=== PATIENT | female | born 1995 | race Caucasian/White ===

== ENCOUNTER 2016-10-05 18:30 | Emergency (ER) | payer MEDICAID, OTHER ==
--- NOTE | 2016-10-05 20:41 | ED ---
Skin Complaint - HPI Summary HPI Summary: 20 female presents with complaints of facial swelling and pain that began Saturday of this week, 10/02/16. Patient states she was seen at a walk in clinic who gave her clindamycin and diagnosed her with a cellulitis. This has not helped. Patient states she thought the pain began from a pimple that turned into increased swelling and pain. The pain and swelling has begun to worsen, even with taking the clindamycin, and spreading to her left cheek and under her chin. Denies fever/chills, any other pain, nausea, vomiting. Has been taking Advil without any relief. Patient denies discharge, recent trauma or injury. No PMHx. No new soaps, lotions, makeup or facewash. Denies difficulty breathing and swallowing. Is able to open her mouth however causes her pain in her chin due to the swelling and tenderness. Denies history MRSA. Denies open wounds or illnesses that she has been around. - History of Current Complaint Chief Complaint: EDGeneral Time Seen by Provider: 10/05/16 20:25 Stated Complaint: DX CELLULITIS/WORSENING SYMPTOMS Hx Obtained From: Patient Hx Last Menstrual Period: early Jun Onset/Duration: Started Days Ago - ~5, Atraumatic Skin Exposure Onset/Duration: Days Ago Timing: Constant Onset Severity: Moderate Current Severity: Severe Pain Intensity: 10 Pain Scale Used: 0-10 Numeric Skin Location: Face - chin Character: Swelling, Redness, Raised, Painful Aggravating Symptom(s): Touch Alleviating Symptom(s): Nothing, Treatment [employer]: - clindamycin x 4 days, has not helped Associated Signs & Symptoms: Negative Related History: Other: - pimple? - Allergy/Home Medications Allergies/Adverse Reactions: Allergies Allergy/AdvReac Type Severity Reaction Status Date / Time Amoxicillin Allergy Severe Hives Verified 10/05/16 22:41 Cyclobenzaprine Allergy Hives Verified 10/05/16 22:41 [From Flexeril] Morphine Allergy Rash Verified 10/05/16 22:41 Penicillins Allergy Hives Verified 10/05/16 22:41 PMH/Surg Hx/FS Hx/Imm Hx Endocrine/Hematology History: Denies: Hx Diabetes, Hx Thyroid Disease Cardiovascular History: Denies: Hx Hypertension Respiratory History: Reports: Hx Asthma Denies: Hx Chronic Obstructive Pulmonary Disease (COPD) GI History: Denies: Hx Ulcer - Surgical History Surgery Procedure, Year, and Place: appe - Immunization History Immunizations Up to Date: Yes Infectious Disease History: No Infectious Disease History: Denies: Hx Clostridium Difficile, Hx Hepatitis, Hx Human Immunodeficiency Virus (HIV), Hx of Known/Suspected MRSA, Hx Shingles, Hx Tuberculosis, History Other Infectious Disease, Traveled Outside the [place] in Last 30 Days - Family History Known Family History: Positive: None - Social History Alcohol Use: None Substance Use Type: Reports: None Smoking Status (MU): Never Smoked Tobacco Review of Systems Constitutional: Negative ENT: Negative Cardiovascular: Negative Respiratory: Negative Gastrointestinal: Negative Positive: Other - pain, redness and swelling of chin Neurological: Negative All Other Systems Reviewed And Are Negative: Yes Physical Exam Triage Information Reviewed: Yes Vital Signs On Initial Exam: Initial Vitals Temp Pulse Resp BP Pulse Ox 98.0 F 70 16 106/63 99 10/05/16 18:34 10/05/16 18:34 10/05/16 18:34 10/05/16 18:34 10/05/16 18:34 afebrile Vital Signs Reviewed: Yes Appearance: Positive: Well-Appearing, No Pain Distress, Well-Nourished Skin: Positive: Warm, Skin Color Reflects Adequate Perfusion, Dry, Erythema @ - chin and left jawline, tender to palpation, warm to touch, firm indurated area at anterior chin, non-fluctuant. mary size abscess palapted, very tender. no discharge, healing pimple/wound superficially noted. Head/Face: Positive: Normal Head/Face Inspection - besides edema and erythema as noted above Eyes: Positive: Normal, EOMI, TARA, Conjunctiva Clear ENT: Positive: Normal ENT inspection, Hearing grossly normal, Pharynx normal. Negative: Tonsillar swelling, Tonsillar exudate, Trismus - hurts to open mout due to chin pain/swelling Dental: Positive: Cellulitis @ - chin and right jaw line, Cervical Lymphadenopathy, Other - no chace's angina. Negative: Dental Fracture @ Neck: Positive: Supple, Nontender. Negative: Tenderness @, Enlarged Nodes @ Respiratory/Lung Sounds: Positive: Clear to Auscultation, Breath Sounds Present. Negative: Rales, Rhonchi, Wheezes Cardiovascular: Positive: Normal, RRR, Pulses are Symmetrical in both Upper and Lower Extremities Abdomen Description: Positive: Nontender Bowel Sounds: Positive: Present Musculoskeletal: Positive: Normal, Strength/ROM Intact Neurological: Positive: Normal, Sensory/Motor Intact, Alert, Oriented to Person Place, Time Diagnostics - Vital Signs Vital Signs Temp Pulse Resp BP Pulse Ox 10/05/16 20:23 59 98 10/05/16 20:22 110/74 10/05/16 18:38 98.2 F 70 16 106/63 99 10/05/16 18:34 98.0 F 70 16 106/63 99 - Laboratory Lab Statement: Any lab studies that have been ordered have been reviewed, and results considered in the medical decision making process. Course/Dx - Course Course Of Treatment: given toradol for pain and inflammation. given first dose of rocephin IM and bactrim orally. will continue bactrim at home along with ibuprofen. warm compresses. not ready to be i&d. Dr Cazares also evaluated patient, agrees with plan. Discontinue clindamycin. Return Saturday for re-check to ensure improvement of symptoms. Afebrile and normal vital signs no concern for sepsis, no further lab work or imaging ordered at this time. Patient is aware of worsening signs and symptoms to return for. - Differential Diagnoses - Skin Complaint Differential Diagnoses: Abscess, Cellulitis, Contact Dermatitis, MRSA, Viral Exanthem, Other - Diagnoses Provider Diagnoses: Abscess or cellulitis of chin Discharge - Discharge Plan Condition: Stable Disposition: HOME Prescriptions: Sulfamethox/Trimethoprim DS* [Bactrim DS 800/160 TAB*] 1 tab PO BID #20 tab Patient Education Materials: Cellulitis (ED), Abscess (ED) Referrals: No Primary Care Phys,NOPCP [Primary Care Provider] - [facility] – [place] PHYSICIAN REFERRAL [Outside] Additional Instructions: Take medication as prescribed. Discontinue use of Clindamycin. If you develop worsening symptoms such as fever/chills, difficulty swallowing or breathing, or generalized feeling of illness please return to ED promptly. Follow up in ED for re-check on Saturday10/07/16 to ensure improvement of symptoms. Give medication 2-3 days to show signs of improvement rather than worsening. Apply warm compresses to the area multiple times daily. Ibuprofen for pain and inflammation, as needed.
[2016-10-05] MEDS ORDERED: cefTRIAXone VIAL(*) 1,000 MG in NS 0.9% 50 ML* 50 ML IVPB ONE (21:58)
[2016-10-05] MEDS ORDERED: Sulfamethox/Trimethoprim DS 800/160* TAB PO ONE (21:59)
[2016-10-05] MEDS ORDERED: cefTRIAXone VIAL(*) 1,000 MG VIAL IM ONE (22:24)
[2016-10-05] MEDS: Ketorolac INJ* 60 MG/2 ML VIAL IM ONE ×2 (22:41→22:51)
[2016-10-05 23:17] VITALS: BP 92/64
== END 2016-10-05 23:10 | disposition home or self-care (01) ==
LOC: ED 18:30
DX: L02.01 Cutaneous abscess of face (principal)
CPT/HCPCS: 96374; 99283; A9270-GY; J0696; J1885

== ENCOUNTER 2016-10-26 15:29 | Emergency (ER) | payer MEDICAID ==
[2016-10-26 15:34] VITALS: BP 114/75
--- NOTE | 2016-10-26 16:22 | UC ---
Abdominal Pain Female HPI - HPI Summary HPI Summary: Full, pressure, pain in upper abdomen below ribs that is worse with deep breaths since this morning. Denies wheezing, SOB, or hx of respiratory problems. No n/v/d this week, no fever or shaking chills. Had facial cellulitis in late September and was exposed to 3 kinds of abx in her treatment. After that was done she had a week of having diarrhea "all day long." Now bowel is back to normal, BMs every 2-3 days. - History of Current Complaint Chief Complaint: UCGeneralIllness Stated Complaint: DIFFICULTY BREATHING Time Seen by Provider: 10/26/16 15:47 Hx Obtained From: Patient Hx Last Menstrual Period: 10/13/16 ?: No Onset/Duration: Gradual Onset, Lasting Hours Timing: Constant Severity Initially: Mild Severity Currently: Mild Location: Epigastric Radiates: Yes Radiates to: Chest - bilat ribs Character: Aching, Dull Aggravating Factor(s): Nothing Alleviating Factor(s): Nothing Associated Signs and Symptoms: Negative: Fever, Back Pain, Constipation, Blood in Stool, Urinary Symptoms, Nausea, Vomiting Allergies/Adverse Reactions: Allergies Allergy/AdvReac Type Severity Reaction Status Date / Time Amoxicillin Allergy Severe Hives Verified 10/26/16 15:34 Cyclobenzaprine Allergy Hives Verified 10/26/16 15:34 [From Flexeril] Morphine Allergy Rash Verified 10/26/16 15:34 Penicillins Allergy Hives Verified 10/26/16 15:34 Home Medications: Home Medications Depression Medication 10/26/16 [History] PMH/Surg Hx/FS Hx/Imm Hx Previously Healthy: Yes - Surgical History Surgical History: Yes Surgery Procedure, Year, and Place: appe - Family History Known Family History: Positive: Hypertension - Social History Lives: With Family Alcohol Use: None Substance Use Type: None Smoking Status (MU): Never Smoked Tobacco - Immunization History Most Recent Influenza Vaccination: fall 2012 Vaccination Up to Date: Yes Review of Systems Constitutional: Negative Skin: Negative Eyes: Negative ENT: Negative Respiratory: Negative Cardiovascular: Negative Gastrointestinal: Abdominal Pain Genitourinary: Negative Motor: Negative Neurovascular: Negative Musculoskeletal: Negative Neurological: Negative Psychological: Negative All Other Systems Reviewed And Are Negative: Yes Physical Exam Triage Information Reviewed: Yes Appearance: Well-Appearing, No Pain Distress, Well-Nourished Vital Signs: Initial Vital Signs Temp 98.8 F 10/26/16 15:30 Pulse 69 10/26/16 15:30 Resp 18 10/26/16 15:30 BP 114/75 10/26/16 15:30 Pulse Ox 99 10/26/16 15:30 Vital Signs Reviewed: Yes Eye Exam: Normal Eyes: Positive: Conjunctiva Clear ENT Exam: Normal ENT: Positive: Normal ENT inspection, Hearing grossly normal, Pharynx normal, TMs normal Dental Exam: Normal Neck exam: Normal Neck: Positive: Supple, Nontender, No Lymphadenopathy Respiratory: Positive: Chest non-tender, Lungs clear, Normal breath sounds, No respiratory distress, No accessory muscle use Cardiovascular Exam: Normal Cardiovascular: Positive: RRR, No Murmur Abdomen Description: Positive: Nontender - diffuse mild tenderness, Soft. Negative: CVA Tenderness (R), CVA Tenderness (L), Distended, McBurney's Point Tenderness, Peritoneal Signs Bowel Sounds: Positive: Hypoactive Musculoskeletal Exam: Normal Neurological Exam: Normal Neurological: Positive: Alert Psychological Exam: Normal Skin Exam: Normal Abd Pain Female Course/Dx - Differential Dx/Diagnosis Provider Diagnoses: dyspepsia Discharge - Discharge Plan Condition: Stable Disposition: HOME Prescriptions: Omeprazole CAP* [Prilosec CAP* 20 MG] 20 mg PO DAILY #30 cap. Patient Education Materials: Indigestion (ED) Referrals: No Primary Care Phys,NOPCP [Primary Care Provider] - [facility] [place] [facility]IAN REFERRAL [Outside] Additional Instructions: As we discussed, I think some of your discomfort may be related to the rounds of antibiotics you took in the last couple weeks. I recommend you take probiotics to help repopulate your intestinal bacteria. You can take pills ( such as lactobacillus), or you can eat cultured food with live cultures. Yogurt , kimchi, sauerkraut, and kombucha are all good sources of such bacteria. If you have prolonged symptoms, please contact a primary care provider for a follow-up visit.
== END 2016-10-26 16:29 | disposition home or self-care (01) ==
LOC: UCEAST 15:29
DX: R10.13 Epigastric pain (principal); Z79.2 Long term (current) use of antibiotics; Z79.899 Other long term (current) drug therapy
CPT/HCPCS: 99212; G0463

== ENCOUNTER 2017-03-03 20:30 | Emergency (ER) | payer MEDICAID ==
[2017-03-03] MEDS ORDERED: Ondansetron INJ* 2 MG/ML VIAL IV ONE (21:35)
[2017-03-03] MEDS ORDERED: NS 0.9% 1000 ML* 1,000 ML IV ONE (21:35)
[2017-03-03] MEDS ORDERED: Morphine INJ* 2 MG/ML 1 ML CARPUJECT IV ONE (21:35)
--- NOTE | 2017-03-03 21:59 | RAD ---
Indication: RIGHT upper quadrant pain. Comparison: July 07, 2013 Technique: RIGHT upper quadrant ultrasound. Report: Appropriate direction flow documented in the portal and hepatic veins. 16.6 cm liver is normal in echogenicity. Negative for focal hepatic lesions. Negative for intrahepatic biliary dilatation. 2.6 mm common bile duct. Contracted gallbladder limiting assessment. Nonetheless the gallbladder wall measures only 2.8 mm within normal limits. No visualized gallstones, biliary sludge, or pericholecystic fluid. Negative for sonographic Mullins's sign. The pancreatic tail is partially obscured due to bowel gas with the visualized pancreas unremarkable. Negative for ascites. 12.2 cm RIGHT kidney is unremarkable. IMPRESSION: Contracted gallbladder limiting assessment without visualized gross abnormality of the gallbladder. If clinically indicated consider nonemergent reassessment with ultrasound after further fasting.
[2017-03-03 22:15] LABS: Hematocrit 41 % (35-47); Hemoglobin 13.7 g/dl (12.0-16.0); Mean Corpuscular HGB Conc 34 g/dl (31-36); Mean Corpuscular Hemoglobin 28 pg (27-31); Mean Corpuscular Volume 84 fL (80-97); Mean Platelet Volume 8 um3 (7.4-10.4); Red Blood Count 4.81 10^6/ul (4.0-5.4); Red Cell Distribution Width 14 % (10.5-15); White Blood Count 9.1 10^3/ul (3.5-10.8)
[2017-03-03] MEDS ORDERED: Morphine INJ* 4 MG/ML 1 ML CARPUJECT ONE (22:20)
[2017-03-03] MEDS ORDERED: Ketorolac INJ* 30 MG/ML 1 ML VIAL IV PUSH ONE (22:27)
[2017-03-03 22:30] LABS: Albumin 4.6 g/dL (3.2-5.2); Calcium 9.7 mg/dL (8.6-10.3); EGFR African American 134.6 (>60); EGFR Non-African American 104.6 (>60); Globulin 3.2 g/dL (2-4); Potassium 3.7 mmol/L (3.5-5.0); Total Bilirubin 0.4 mg/dL (0.2-1.0); Total Protein 7.8 g/dL (6.4-8.9)
[2017-03-03 23:11] LABS: Urine Bacteria Absent (Absent); Urine Bilirubin Negative (Negative); Urine Glucose Negative (Negative); Urine Nitrite Negative (Negative)
[2017-03-04 02:46] VITALS: BP 105/60
--- NOTE | 2017-03-04 03:17 | ED ---
Carolyn Peterson Rebecca, scribed for Mary Grace Dasuel on 03/03/17 at 2125 . Back Pain - HPI Summary HPI Summary: Pt is a 21 y/o F who presents to ED c/o R flank pain. Pain began approximately 1 week ago and is currently severe, ranked 8/10. Pain does not radiate anywhere. Sx aggravated and alleviated by nothing. Additionally c/o L-sided abdominal pain which she believes is secondary to a left ovarian cyst, diagnosed last week. Denies fever, N/V, blood in stool and hematuria. - History of Current Complaint Chief Complaint: EDFlankPain Stated Complaint: FLANK PAIN/WBC IN URINE Time Seen by Provider: 03/03/17 21:13 Hx Obtained From: Patient Hx Last Menstrual Period: 10/13/16 Onset/Duration: Lasting Weeks - 1 week, Still Present Back Pain Location: Is Discrete @ - R flank Severity Currently: Severe Pain Intensity: 8 Pain Scale Used: 0-10 Numeric Aggravating Symptom(s): Nothing Alleviating Symptom(s): Nothing Associated Signs And Symptoms: Positive: Abdominal Pain - L-sided. Negative: Fever - Allergies/Home Medications Allergies/Adverse Reactions: Allergies Allergy/AdvReac Type Severity Reaction Status Date / Time Amoxicillin Allergy Severe Hives Verified 03/03/17 20:39 Cyclobenzaprine Allergy Hives Verified 03/03/17 20:39 [From Flexeril] Morphine Allergy Rash Verified 03/03/17 20:39 Penicillins Allergy Hives Verified 03/03/17 20:39 PMH/Surg Hx/FS Hx/Imm Hx Endocrine/Hematology History: Denies: Hx Diabetes, Hx Thyroid Disease Cardiovascular History: Denies: Hx Hypertension Respiratory History: Reports: Hx Asthma Denies: Hx Chronic Obstructive Pulmonary Disease (COPD) GI History: Denies: Hx Ulcer - Surgical History Surgery Procedure, Year, and Place: appe Infectious Disease History: No Infectious Disease History: Denies: Hx Clostridium Difficile, Hx Hepatitis, Hx Human Immunodeficiency Virus (HIV), Hx of Known/Suspected MRSA, Hx Shingles, Hx Tuberculosis, History Other Infectious Disease, Traveled Outside the [place] in Last 30 Days - Family History Known Family History: Positive: Hypertension - Social History Alcohol Use: None Substance Use Type: Reports: None Smoking Status (MU): Never Smoked Tobacco Review of Systems Negative: Fever Positive: Abdominal Pain - L-sided. Negative: Vomiting, Nausea Positive: flank pain - Right, other - NEGATIVE: Blood in stool. Negative: hematuria All Other Systems Reviewed And Are Negative: Yes Physical Exam - Summary Physical Exam Summary: Appearance: Well appearing, no pain distress Skin: warm, dry, reflects adequate perfusion Head/face: normal Eyes: EOMI, TARA ENT: normal Neck: supple, nontender Respiratory: CTA, breath sounds present Cardiovascular: RRR, pulses symmetrical Abdomen: tenderness in the RUQ and LLQ, soft Bowel: present Musculoskeletal: normal, strength/ROM intact Neuro: normal, sensory motor intact, A&Ox3 Triage Information Reviewed: Yes Vital Signs On Initial Exam: Initial Vitals Temp Pulse Resp BP Pulse Ox 98.7 F 76 18 126/83 98 03/03/17 20:35 03/03/17 20:35 03/03/17 20:35 03/03/17 20:35 03/03/17 20:35 Vital Signs Reviewed: Yes Diagnostics - Vital Signs Vital Signs Temp Pulse Resp BP Pulse Ox 03/03/17 20:35 98.7 F 76 18 126/83 98 - Laboratory Lab Results: Lab Results 03/03/17 03/03/17 03/03/17 Range/Units 22:05 22:05 22:05 WBC 9.1 (3.5-10.8) 10^3/ul RBC 4.81 (4.0-5.4) 10^6/ul Hgb 13.7 (12.0-16.0) g/dl Hct 41 (35-47) % MCV 84 (80-97) fL MCH 28 (27-31) pg MCHC 34 (31-36) g/dl RDW 14 (10.5-15) % Plt Count 287 (150-450) 10^3/ul MPV 8 (7.4-10.4) um3 Neut % (Auto) 52.7 (38-83) % Lymph % (Auto) 35.7 (25-47) % Gaines % (Auto) 8.9 (1-9) % Eos % (Auto) 2.0 (0-6) % Baso % (Auto) 0.7 (0-2) % Absolute Neuts (auto) 4.8 (1.5-7.7) 10^3/ul Absolute Lymphs (auto) 3.3 (1.0-4.8) 10^3/ul Absolute Monos (auto) 0.8 (0-0.8) 10^3/ul Absolute Eos (auto) 0.2 (0-0.6) 10^3/ul Absolute Basos (auto) 0.1 (0-0.2) 10^3/ul Absolute Nucleated RBC 0.01 10^3/ul Nucleated RBC % 0.1 INR (Anticoag Therapy) 1.11 (0.89-1.11) APTT 36.7 H (26.0-36.3) seconds Sodium 134 (133-145) mmol/L Potassium 3.7 (3.5-5.0) mmol/L Chloride 101 (101-111) mmol/L Carbon Dioxide 28 (22-32) mmol/L Anion Gap 5 (2-11) mmol/L BUN 14 (6-24) mg/dL Creatinine 0.70 (0.51-0.95) mg/dL Est GFR ( Amer) 134.6 (>60) Est GFR (Non-Af Amer) 104.6 (>60) BUN/Creatinine Ratio 20.0 (8-20) Glucose 85 (70-100) mg/dL Calcium 9.7 (8.6-10.3) mg/dL Total Bilirubin 0.40 (0.2-1.0) mg/dL AST 14 (13-39) U/L ALT 11 (7-52) U/L Alkaline Phosphatase 42 (34-104) U/L Total Protein 7.8 (6.4-8.9) g/dL Albumin 4.6 (3.2-5.2) g/dL Globulin 3.2 (2-4) g/dL Albumin/Globulin Ratio 1.4 (1-3) Lipase 28 (11.0-82.0) U/L Beta HCG, Quant 10.98 mIU/mL Urine Color Urine Appearance Urine pH (5-9) Ur Specific [place] (1.010-1.030) Urine Protein (Negative) Urine Ketones (Negative) Urine Blood (Negative) Urine Nitrate (Negative) Urine Bilirubin (Negative) Urine Urobilinogen (Negative) Ur Leukocyte Esterase (Negative) Urine WBC (Auto) (Absent) Urine RBC (Auto) (Absent) Ur Squamous Epith Cells (Absent) Urine Bacteria (Absent) Urine Glucose (Negative) 10/22/17 Range/Units 22:52 WBC (3.5-10.8) 10^3/ul RBC (4.0-5.4) 10^6/ul Hgb (12.0-16.0) g/dl Hct (35-47) % MCV (80-97) fL MCH (27-31) pg MCHC (31-36) g/dl RDW (10.5-15) % Plt Count (150-450) 10^3/ul MPV (7.4-10.4) um3 Neut % (Auto) (38-83) % Lymph % (Auto) (25-47) % Gaines % (Auto) (1-9) % Eos % (Auto) (0-6) % Baso % (Auto) (0-2) % Absolute Neuts (auto) (1.5-7.7) 10^3/ul Absolute Lymphs (auto) (1.0-4.8) 10^3/ul Absolute Monos (auto) (0-0.8) 10^3/ul Absolute Eos (auto) (0-0.6) 10^3/ul Absolute Basos (auto) (0-0.2) 10^3/ul Absolute Nucleated RBC 10^3/ul Nucleated RBC % INR (Anticoag Therapy) (0.89-1.11) APTT (26.0-36.3) seconds Sodium (133-145) mmol/L Potassium (3.5-5.0) mmol/L Chloride (101-111) mmol/L Carbon Dioxide (22-32) mmol/L Anion Gap (2-11) mmol/L BUN (6-24) mg/dL Creatinine (0.51-0.95) mg/dL Est GFR ( Amer) (>60) Est GFR (Non-Af Amer) (>60) BUN/Creatinine Ratio (8-20) Glucose (70-100) mg/dL Calcium (8.6-10.3) mg/dL Total Bilirubin (0.2-1.0) mg/dL AST (13-39) U/L ALT (7-52) U/L Alkaline Phosphatase (34-104) U/L Total Protein (6.4-8.9) g/dL Albumin (3.2-5.2) g/dL Globulin (2-4) g/dL Albumin/Globulin Ratio (1-3) Lipase (11.0-82.0) U/L Beta HCG, Quant mIU/mL Urine Color Straw Urine Appearance Clear Urine pH 5.0 (5-9) Ur Specific [place] 1.010 (1.010-1.030) Urine Protein Negative (Negative) Urine Ketones Negative (Negative) Urine Blood 1+ H (Negative) Urine Nitrate Negative (Negative) Urine Bilirubin Negative (Negative) Urine Urobilinogen Negative (Negative) Ur Leukocyte Esterase Trace H (Negative) Urine WBC (Auto) Trace(0-5/hpf) (Absent) Urine RBC (Auto) Absent (Absent) Ur Squamous Epith Cells Present H (Absent) Urine Bacteria Absent (Absent) Urine Glucose Negative (Negative) Result Diagrams: 03/03/17 22:05 03/03/17 22:05 Lab Statement: Any lab studies that have been ordered have been reviewed, and results considered in the medical decision making process. - Ultrasound No standard instances Ultrasound Interpretation Completed By: Radiologist - Gallbladder US: Contracted gallbladder limiting assessment without visualized gross abnormality of the gallbladder. If clinically indicated consider nonemergent reassessment with ultrasound after further fasting. ED physician reviewed radiology report and agrees. Obstetric US: Borderline thickened endometrium without IUP could indicate early normal , miscarriage or ectopic . Recommend followup sonography and correlation with hCG levels. 2.8 cm complex left ovarian cyst with small amount of free fluid but no torsion. ED physician reivewed raidology report and agrees. Back Pain Course/Dx - Course Assessment/Plan: Pt is a 21 y/o F who presents to ED c/o R flank pain without radiation. Pain began approximately 1 week ago and is currently severe, ranked 8 /10. Additionally c/o L-sided abdominal pain which she believes is secondary to a left ovarian cyst, diagnosed last week. Denies fever, N/V, blood in stool and hematuria. Gallbladder US: Contracted gallbladder limiting assessment without visualized gross abnormality of the gallbladder. If clinically indicated consider nonemergent reassessment with ultrasound after further fasting. Obstetric US: Borderline thickened endometrium without IUP could indicate early normal , miscarriage or ectopic . Recommend followup sonography and correlation with hCG levels. 2.8 cm complex left ovarian cyst with small amount of free fluid but no torsion. In the ED course, pt received Toradol, fluids, Morphine and Zofran. Pt will be D/C to home with Dx of abdominal pain and ovarian cyst with a follow up with OB and Rx for Naproxen. She understands and agrees. Allergies noted. - Diagnoses Differential Diagnosis/HQI/PQRI: Positive: Renal Colic, Other - torsion ovary/ ectopic /renal colic/diverticulitis Provider Diagnoses: Abdominal pain, Ovarian cyst Discharge - Discharge Plan Condition: Stable Disposition: HOME Prescriptions: Naproxen [Naproxen 500 mg] 500 mg PO Q8H PRN #20 tab MDD 3 PRN Reason: Pain Patient Education Materials: Ovarian Cyst (ED), Acute Abdominal Pain (ED) Forms: *Work Release Referrals: Phong Shrestha MD [Medical Doctor] - 2 Days The documentation as recorded by the Carolyn eugene Rebecca accurately reflects the service I personally performed and the decisions made by Pippa mendoza Emmanuel.
--- NOTE | 2017-03-04 07:59 | RAD ---
HISTORY: Left lower quadrant pain, torsion, ectopic . Beta hCG of 10.0 COMPARISONS: None TECHNIQUE: Multiple transverse and longitudinal ultrasound images were obtained of the pelvis using grayscale, color Doppler, and spectral Doppler imaging using the endovaginal transducer. FINDINGS: UTERUS: The uterus measures 10 x 6.1 x 4.7 cm. The uterus is normal in shape, size, contour, and echotexture. ENDOMETRIUM: The endometrial stripe is smooth. The endometrium measures 1.4 cm in thickness. No intrauterine gestation is identified. CUL-DE-SAC: There is a small amount of simple fluid within the cul-de-sac. This may be physiologic in a reproductive age female. RIGHT OVARY: The right ovary measures 3.5 x 3.8 x 1.9 cm. Normal arterial and venous waveforms are identifiable within the ovary on spectral Doppler imaging. LEFT OVARY: The left ovary measures 5.3 x 2.8 x 1.6 cm. Normal arterial and venous waveforms are identifiable within the ovary on spectral Doppler imaging. Involuting cyst is noted. BLADDER: The bladder is not well visualized. OTHER: None IMPRESSION: 1. NO INTRAUTERINE GESTATION IS IDENTIFIED. THE DIFFERENTIAL INCLUDES EARLY INTRAUTERINE GESTATION, MISSED , OR ECTOPIC . RECOMMEND CORRELATION WITH SERIAL BETA-HCG LEVELS AND FOLLOW-UP IMAGING. 2. NO SONOGRAPHIC FEATURES OF TORSION. PLEASE NOTE THAT PARTIAL OR INTERMITTENT TORSION MAY BE SONOGRAPHICALLY NORMAL.
== END 2017-03-04 02:44 | disposition home or self-care (01) ==
LOC: ED 20:30
DX: R10.9 Unspecified abdominal pain (principal); N83.209 Unspecified ovarian cyst, unspecified side
CPT/HCPCS: 36415; 76705; 76817; 80053; 81003; 81015; 83690; 84702; 85025; 85610; 85730; 87086; 96374; 96375; 99283; J1885; J2270; J2405

== ENCOUNTER 2018-01-26 13:18 | Emergency (ER) | payer SELFPAY ==
[2018-01-26] MEDS ORDERED: LORazepam INJ* 2 MG/ML 1 ML VIAL IV PUSH ONE (13:28)
[2018-01-26] MEDS ORDERED: NS 0.9% 1000 ML* 1,000 ML IV ONE (13:28)
--- NOTE | 2018-01-26 13:33 | ED ---
Complex/Multi-Sys Presentation - HPI Summary HPI Summary: This patient is a 22 year old F presenting to [facility] accompanied by siblings with a chief complaint of difficulty breathing that began [employer]. The patient rates the pain 0/10 in severity. Symptoms aggravated by nothing. Symptoms alleviated by nothing. Patient reports difficulty talking, difficulty walking, throat pain, muscle cramping, headache, throat pain, SOB, chest discomfort, and general bruising. Patient denies fever, blurred vision, double vision, ear ache , neck pain, abd pain, back pain, dysuria, hematuria, depression, and edema. Patient states she was seen at [facility] for these symptoms, and was discharged this morning. - History Of Current Complaint Hx Obtained From: Patient Onset/Duration: Sudden Onset, Lasting Hours, Still Present Timing: Constant Severity Currently: Mild Severity Initially: Mild Aggravating Factor(s): Nothing Alleviating Factor(s): Nothing Associated Signs And Symptoms: Positive: Other - Positive difficulty talking, difficulty walking, throat pain, muscle cramping, headache, throat pain, SOB, chest discomfort, and general bruising. Negative fever, blurred vision, double vision, ear ache, neck pain, abd pain, back pain, dysuria, hematuria, depression , and edema. - Allergies/Home Medications Allergies/Adverse Reactions: Allergies Allergy/AdvReac Type Severity Reaction Status Date / Time amoxicillin Allergy Hives Verified 01/26/18 13:30 cyclobenzaprine Allergy Hives Verified 01/26/18 13:30 [From Flexeril] morphine Allergy Rash Verified 01/26/18 13:30 Penicillins Allergy Hives Verified 01/26/18 13:30 Home Medications: Home Medications NK [No Home Medications Reported] 01/26/18 [History Confirmed 01/26/18] PMH/Surg Hx/FS Hx/Imm Hx Previously Healthy: No Endocrine/Hematology History: Denies: Hx Diabetes, Hx Thyroid Disease Cardiovascular History: Denies: Hx Hypertension Respiratory History: Reports: Hx Asthma Denies: Hx Chronic Obstructive Pulmonary Disease (COPD) GI History: Denies: Hx Ulcer - Surgical History Surgery Procedure, Year, and Place: appe Infectious Disease History: No Infectious Disease History: Denies: Hx Clostridium Difficile, Hx Hepatitis, Hx Human Immunodeficiency Virus (HIV), Hx of Known/Suspected MRSA, Hx Shingles, Hx Tuberculosis, History Other Infectious Disease, Traveled Outside the [place] in Last 30 Days - Family History Known Family History: Positive: Hypertension - Social History Occupation: Employed Full-time Lives: Alone Alcohol Use: None Hx Substance Use: No Substance Use Type: Reports: None Hx Tobacco Use: No Smoking Status (MU): Never Smoked Tobacco Review of Systems Negative: Fever Negative: Blurred Vision, Diplopia Positive: Sore Throat. Negative: Ear Ache Positive: Chest Pain Positive: Shortness Of Breath, Other - Positive difficulty breathing Negative: Abdominal Pain Negative: dysuria, hematuria Positive: Other - Positive muscle cramping and difficulty walking. Negative back pain. Negative: Edema Positive: Bruising. Negative: Rash Positive: Headache Negative: Depressed All Other Systems Reviewed And Are Negative: No Physical Exam - Summary Physical Exam Summary: Appearance: Alert, conversive, nontoxic appearing Skin: Warm, dry, no mottling, no rashes, no contusions HEENT: EOMI, PERRL, moist mucous membranes Neck: No masses on the neck, supple Respiratory: Clear to auscultation, breath sounds present, no rales, no rhonchi , no wheezes. Tachypnea Cardiovascular: RRR, pulses are symmetrical in both lower and upper extremities Abdomen: Soft, non-tender Bowel Sounds: Present Musculoskeletal: No CVA tenderness, no obvious deformity, moving all extremities in a grossly normal manner Neurological: A&Ox3, CN II-XII Intact, moving all extremities symmetrically. With blood pressure cuff on shes having carpal spasms. Psychiatric: Normal affect and mood Triage Information Reviewed: Yes Vital Signs On Initial Exam: Initial Vitals Temp Pulse Resp BP Pulse Ox 98.8 F 104 19 125/101 100 01/26/18 13:25 01/26/18 13:25 01/26/18 13:25 01/26/18 13:25 01/26/18 13:25 Vital Signs Reviewed: Yes Diagnostics - Vital Signs Vital Signs Temp Pulse Resp BP Pulse Ox 01/26/18 13:25 98.8 F 104 19 125/101 100 - Laboratory Result Diagrams: 01/26/18 13:38 01/26/18 13:38 Lab Statement: Any lab studies that have been ordered have been reviewed, and results considered in the medical decision making process. - Radiology CXR Radiology Interpretation Completed By: Radiologist - CXR reveals, per radiologist, no radiographic evidence for acute cardiopulmonary abnormality on this single AP view chest x-ray. ED physician has reviewed this radiology report. - EKG 1358 Cardiac Rate: NL EKG Rhythm: Sinus Rhythm - 89 BPM EKG Interpretation: Nml axis. Nml QTC Re-Evaluation - Re-Evaluation First Eval Re-Evaluation Time: 18:02 Change: Unchanged Comment: Pt is still experiencing tachypnea Complex Multi-Symp Course/Dx Course Of Treatment: This patient is a 22 year old F presenting to [facility] accompanied by siblings with a chief complaint of difficulty breathing that began [employer]. Patient reports difficulty talking, difficulty walking, throat pain, muscle cramping, headache, throat pain, SOB, chest discomfort, and general bruising. She states she seen at [facility] for these symptoms, and was discharged this morning. Physical Exam Findings: With blood pressure cuff on shes having carpal spasms. Tachypnea. CXR reveals, per radiologist, no radiographic evidence for acute cardiopulmonary abnormality on this single AP view chest x- ray. Blood work and UA obtained. In the ED course the patient was given fluids and Ativan. Patient will be signed out to Dr. Coppola upon shift change pending re-evaluation after second two liters of fluid. The patient is agreeable with this plan. - Diagnoses Provider Diagnoses: Anxiety, Dehydration Discharge - Sign-Out/Discharge Documenting (check all that apply): Sign-Out Patient Signing out patient TO: Flavio Coppola - Upon shift change pending re- evaluation after second two liters of fluids - Discharge Plan Condition: Stable - Attestation Statements Document Initiated by Scribe: Yes Documenting Scribe: Elham Luciano Provider For Whom Scribe is Documenting (Include Credential): Stephanie Roman MD Scribe Attestation: I, Elham Luciano, scribed for Stephanie Roman MD on 01/26/18 at 8136.
[2018-01-26 13:53] LABS: ABS Basophils 0.1 10^3/ul (0-0.2); ABS Eosinophils 0.1 10^3/ul (0-0.6); ABS Lymphocytes 2.7 10^3/ul (1.0-4.8); ABS Monocytes 1.2 10^3/ul (0-0.8); ABS Neutrophils 6.2 10^3/ul (1.5-7.7); ABS Nucleated RBC 0 10^3/ul; Eosinophil % 1.2 % (0-6); Hematocrit 42 % (35-47); Lymphocyte % 26.5 % (25-47); Mean Corpuscular HGB Conc 34 g/dl (31-36); Mean Corpuscular Hemoglobin 29 pg (27-31); Mean Corpuscular Volume 85 fL (80-97); Mean Platelet Volume 8.2 um3 (7.4-10.4); Nucleated Red Blood Cells % 0; Platelet Count 335 10^3/ul (150-450); Red Cell Distribution Width 14 % (10.5-15); White Blood Count 10.3 10^3/ul (3.5-10.8)
--- NOTE | 2018-01-26 14:05 | RAD ---
INDICATION: Dyspnea COMPARISON: Most recent chest x-rays dated July 07, 2013 TECHNIQUE: Single AP view of the chest was obtained. FINDINGS: The heart and mediastinum exhibit normal size and contour. The lungs are grossly clear. There is no evidence of a large pleural effusion. Visualized bones are normal for the patient's age. IMPRESSION: No radiographic evidence for acute cardiopulmonary abnormality on this single AP view chest x-ray.
[2018-01-26 14:10] LABS: EGFR Non-African American 77.6 (>60)
[2018-01-26] MEDS ORDERED: NS 0.9% 1000 ML* 2,000 ML IV ONE (17:53)
--- NOTE | 2018-01-26 20:13 | ED ---
Re-Evaluation - Re-Evaluation First Eval Re-Evaluation Time: 18:02 Change: Unchanged Comment: Pt is still experiencing tachypnea Second Eval Change: Improved Comment: This is a 22-year-old woman signed out to me by Dr. Roman pending reevaluation after further IV fluids. Her heart rate has come down, but given the degree of her tachycardia I have added on a TSH level. If that is normal and hyperthyroidism is ruled out she can be safely discharged. Course/Dx - Course Course Of Treatment: This patient is a 22 year old F presenting to [facility] accompanied by siblings with a chief complaint of difficulty breathing that began [employer]. Patient reports difficulty talking, difficulty walking, throat pain, muscle cramping, headache, throat pain, SOB, chest discomfort, and general bruising. She states she seen at [facility] for these symptoms, and was discharged this morning. Physical Exam Findings: With blood pressure cuff on shes having carpal spasms. Tachypnea. CXR reveals, per radiologist, no radiographic evidence for acute cardiopulmonary abnormality on this single AP view chest x- ray. Blood work and UA obtained. In the ED course the patient was given fluids and Ativan. Patient will be signed out to Dr. Coppola upon shift change pending re-evaluation after second two liters of fluid. The patient is agreeable with this plan. - Diagnoses Provider Diagnoses: Anxiety, Dehydration Discharge - Sign-Out/Discharge Documenting (check all that apply): Patient Departure - Discharge Plan Condition: Good Disposition: HOME Patient Education Materials: Anxiety (ED) Referrals: [facility] [Outside] - Billing Disposition and Condition Condition: GOOD Disposition: Home - Attestation Statements Document Initiated by Scribe: No
[2018-01-26 21:51] VITALS: BP 103/56
== END 2018-01-26 21:51 | disposition home or self-care (01) ==
LOC: ED 13:18
DX: F41.9 Anxiety disorder, unspecified (principal); E86.0 Dehydration
CPT/HCPCS: 36415; 71045; 80053; 84443; 84484; 84702; 85025; 85379; 93005; 96361; 96374; 99284; J2060

== ENCOUNTER 2018-09-06 08:32 | Emergency (ER) | payer OTHER ==
[2018-09-06] MEDS ORDERED: NS 0.9% 1000 ML** 1,000 ML IV ONE (08:38)
--- NOTE | 2018-09-06 08:52 | ED ---
Syncope/Near Syncope - HPI Summary HPI Summary: This patient is a 22 year old female presenting to [facility] with a chief complaint of syncope since this morning. Patient states that she was at work, asymptomatic , when suddenly, her ears started ringing, her vision became blurry, and she began to pass out. Patient states that she began sweating, so she sat down for a little bit. When she got back up the symptoms repeated and she passed out. Patient did not fall, however, and caught herself before going down. The pain is rated 0/10 in severity currently. Symptoms aggravated by nothing. Symptoms alleviated by nothing. Patient additionally reports tension headaches in the back of her head, mild nausea. Patient denies vomiting. - History Of Current Complaint Chief Complaint: EDSyncope Time Seen by Provider: 09/06/18 08:37 Hx Obtained From: Patient Onset/Duration: Lasting Hours, Still Present Timing: Intermittent Episode Lasting Context: Loss Of Consciousness Associated Head Trauma: No Aggravating Factor(s): Nothing Alleviating Factor(s): Nothing Associated Signs And Symptoms: Negative - vomiting, Headache, Other - ears ringing, blurry vision, diaphoresis, mild nausea - Allergies/Home Medications Allergies/Adverse Reactions: Allergies Allergy/AdvReac Type Severity Reaction Status Date / Time amoxicillin Allergy Hives Verified 09/06/18 08:35 cyclobenzaprine Allergy Hives Verified 09/06/18 08:35 [From Flexeril] morphine Allergy Rash Verified 09/06/18 08:35 Penicillins Allergy Hives Verified 09/06/18 08:35 PMH/Surg Hx/FS Hx/Imm Hx Previously Healthy: No Endocrine/Hematology History: Denies: Hx Diabetes, Hx Thyroid Disease Cardiovascular History: Denies: Hx Hypertension Respiratory History: Reports: Hx Asthma Denies: Hx Chronic Obstructive Pulmonary Disease (COPD) GI History: Denies: Hx Ulcer - Surgical History Surgery Procedure, Year, and Place: appe Infectious Disease History: No Infectious Disease History: Denies: Hx Clostridium Difficile, Hx Hepatitis, Hx Human Immunodeficiency Virus (HIV), Hx of Known/Suspected MRSA, Hx Shingles, Hx Tuberculosis, History Other Infectious Disease, Traveled Outside the [place] in Last 30 Days - Family History Known Family History: Positive: Hypertension - Social History Lives: With Family Alcohol Use: None Hx Substance Use: No Substance Use Type: Reports: None Hx Tobacco Use: No Smoking Status (MU): Never Smoked Tobacco Review of Systems Positive: Skin Diaphoresis. Negative: Fever Positive: Blurred Vision ENT: Other - ears ringing Positive: Nausea. Negative: Vomiting Positive: Headache, Syncope All Other Systems Reviewed And Are Negative: Yes Physical Exam - Summary Physical Exam Summary: Appearance: well appearing, no pain distress Skin: warm, dry, reflects adequate perfusion Head/face: normal Eyes: EOMI, TARA ENT: mucous membranes moist Neck: supple, non-tender Respiratory: CTA, breath sounds present Cardiovascular: RRR, pulses symmetrical Abdomen: non-tender, soft. Uterus is palpable, 2.5cm below the umbilicus. Bowel Sounds: present Musculoskeletal: normal, strength/ROM intact Neuro: normal, sensory motor intact, A&Ox3 Triage Information Reviewed: Yes Vital Signs On Initial Exam: Initial Vitals Temp Pulse Resp BP Pulse Ox 97.8 F 79 14 112/69 99 09/06/18 08:35 09/06/18 08:35 09/06/18 08:35 09/06/18 08:35 09/06/18 08:35 Vital Signs Reviewed: Yes Diagnostics - Vital Signs Vital Signs Temp Pulse Resp BP Pulse Ox 09/06/18 08:35 97.8 F 79 14 112/69 99 - Laboratory Result Diagrams: 09/06/18 09:01 09/06/18 09:01 Lab Statement: Any lab studies that have been ordered have been reviewed, and results considered in the medical decision making process. - EKG 0847 Cardiac Rate: NL EKG Rhythm: Sinus Rhythm - 79 BPM Summary of EKG Findings: An EKG, taken 0847, reveals NSR (79 BPM), normal axis, normal interval, normal ST. - Additional Comments Diagnostic Additional Comments: Bedside US: fetus heartbeat noted, fetus noted. 17 weeks 3 days by VPD Course/Dx Course Of Treatment: Nurse's notes reviewed. Patient is second trimester with near-syncope today. Did not fall or syncopized. EKG including QT interval is normal. Hydrated here and feeling better. Up and walking about the ER without symptoms. History of anemia which is mild at this point. Discharged to follow up with OB. 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 Stay well-hydrated and he at regular intervals. Continue vitamin. Return if worse, new symptoms or other concerns. If you feel like he might pass out sit or lay down immediately. Do not drive today. - Billing Disposition and Condition Condition: IMPROVED Disposition: Home - Attestation Statements Document Initiated by Jerry: Yes Documenting Scribe: Mukesh Torres Provider For Whom Jerry is Documenting (Include Credential): Daniel Diaz MD Scribe Attestation: Mukesh Peterson scribed for Daniel Diaz MD on 09/06/18 at 1020. Scribe Documentation Reviewed: Yes Provider Attestation: The documentation as recorded by the Mukesh eugene accurately reflects the service I personally performed and the decisions made by Daniel mendoza MD Status of [place] Document: Viewed
[2018-09-06 09:09] LABS: ABS Basophils 0 10^3/ul (0-0.2); ABS Eosinophils 0.1 10^3/ul (0-0.6); ABS Lymphocytes 1.6 10^3/ul (1.0-4.8); ABS Monocytes 0.7 10^3/ul (0-0.8); ABS Neutrophils 7.5 10^3/ul (1.5-7.7); ABS Nucleated RBC 0 10^3/ul; Eosinophil % 0.9 %; Hematocrit 32 % (33-41); Lymphocyte % 16.4 %; Mean Corpuscular HGB Conc 35 g/dL (31-36); Mean Corpuscular Hemoglobin 30 pg (27-31); Mean Corpuscular Volume 86 fL (80-97); Mean Platelet Volume 8.4 fL (7.4-10.4); Nucleated Red Blood Cells % 0.1; Platelet Count 209 10^3/uL (150-450); Red Blood Count 3.69 10^6 /uL (3.70-4.87); Red Cell Distribution Width 14 % (10.5-15); White Blood Count 9.9 10^3/uL (3.5-10.8)
[2018-09-06 09:55] VITALS: BP 97/50
[2018-09-06 09:56] LABS: Calcium 8.6 mg/dL (8.6-10.3); Potassium 3.4 mmol/L (3.5-5.0)
[2018-09-06 10:01] LABS: BUN/Creatinine Ratio 16.7 (8-20); EGFR African American 193.9 (>60); EGFR Non-African American 160.3 (>60)
== END 2018-09-06 10:03 | disposition home or self-care (01) ==
LOC: ED 08:32
DX: O26.92 Pregnancy related conditions, unspecified, second trimester (principal); O99.012 Anemia complicating pregnancy, second trimester; D64.9 Anemia, unspecified; R55 Syncope and collapse; J45.909 Unspecified asthma, uncomplicated; Z3A.17 17 weeks gestation of pregnancy; Z88.3 Allergy status to other anti-infective agents; Z88.5 Allergy status to narcotic agent; Z88.0 Allergy status to penicillin
CPT/HCPCS: 36415; 80048; 84702; 85025; 93005; 96360; 96361; 99282

== ENCOUNTER 2018-11-06 16:36 | Emergency (ER) | payer OTHER ==
--- NOTE | 2018-11-06 19:24 | ED ---
Abdominal Pain/Female - HPI Summary HPI Summary: This pt is a 23 y/o female, currently 26 weeks , presenting to [facility] c/o lower abdominal pain for the past few weeks. Pt describes her pain as cramping and constant, and feels her pain is getting worse. She notes her pain is located in the lower abdomen area, more left than right. Pt states she went to her doctor last week and was told she was dehydrated. Denies vaginal bleeding. This morning she states she had nausea. Denies vomiting. - History of Current Complaint Chief Complaint: EDAbdPain Stated Complaint: ABD PAIN PER PT Time Seen by Provider: 11/06/18 19:14 Hx Obtained From: Patient Hx Last Menstrual Period: 10/13/16 Onset/Duration: Lasting Weeks, Still Present Timing: Weeks Severity Currently: Moderate Pain Intensity: 4 Pain Scale Used: 0-10 Numeric Location: Other - lower abd Radiates: No Character: Cramping Aggravating Factor(s): Nothing Alleviating Factor(s): Nothing Associated Signs and Symptoms: Positive: Nausea. Negative: Fever, Vaginal Bleeding, Vomiting Allergies/Adverse Reactions: Allergies Allergy/AdvReac Type Severity Reaction Status Date / Time amoxicillin Allergy Hives Verified 11/06/18 18:51 cyclobenzaprine Allergy Hives Verified 11/06/18 18:51 [From Flexeril] morphine Allergy Rash Verified 11/06/18 18:51 Penicillins Allergy Hives Verified 11/06/18 18:51 Home Medications: Home Medications 47/Iron/Folate 1/Dha [Pnv-Dha Softgel] 1 cap PO DAILY 11/06/18 [ History Confirmed 11/06/18] PMH/Surg Hx/FS Hx/Imm Hx Endocrine/Hematology History: Denies: Hx Diabetes, Hx Thyroid Disease Cardiovascular History: Denies: Hx Hypertension Respiratory History: Reports: Hx Asthma Denies: Hx Chronic Obstructive Pulmonary Disease (COPD) GI History: Denies: Hx Ulcer - Surgical History Surgery Procedure, Year, and Place: appe Infectious Disease History: No Infectious Disease History: Denies: Hx Clostridium Difficile, Hx Hepatitis, Hx Human Immunodeficiency Virus (HIV), Hx of Known/Suspected MRSA, Hx Shingles, Hx Tuberculosis, History Other Infectious Disease, Traveled Outside the [place] in Last 30 Days - Family History Known Family History: Positive: Hypertension - Social History Alcohol Use: None Hx Substance Use: No Substance Use Type: Reports: None Hx Tobacco Use: No Smoking Status (MU): Never Smoked Tobacco Review of Systems Negative: Fever Positive: Abdominal Pain, Nausea. Negative: Vomiting Negative: other - vaginal bleeding All Other Systems Reviewed And Are Negative: Yes Physical Exam - Summary Physical Exam Summary: Appearance: Well-appearing, Well-nourished, lying in bed comfortably Skin: Warm, dry, no obvious rash Eyes: sclera anicteric, no conjunctival pallor ENT: mucous membranes moist, pharynx appears normal Neck: Supple, nontender Respiratory: Clear to auscultation, no signs of respiratory distress Cardiovascular: Normal S1, S2. No murmurs. Normal distal pulses in tibial and radial bilaterally. Abdomen: Soft, minimal tenderness in the left lower abdomen, normal active bowel sounds present Musculoskeletal: Normal, Strength/ROM Intact Neurological: A&Ox3, awake and alert, mentation is normal, speech is fluent and appropriate Psychiatric: affect is normal, does not appear anxious or depressed Triage Information Reviewed: Yes Vital Signs On Initial Exam: Initial Vitals Temp Pulse Resp BP Pulse Ox 98.8 F 74 16 131/82 98 11/06/18 16:38 11/06/18 16:38 11/06/18 16:38 11/06/18 16:38 11/06/18 16:38 Vital Signs Reviewed: Yes Diagnostics - Vital Signs Vital Signs Temp Pulse Resp BP Pulse Ox 11/06/18 16:38 98.8 F 74 16 131/82 98 - Laboratory Result Diagrams: 11/06/18 19:27 11/06/18 19:27 Lab Statement: Any lab studies that have been ordered have been reviewed, and results considered in the medical decision making process. - Ultrasound No standard instances Ultrasound Interpretation Completed By: Radiologist Summary of Ultrasound Findings: US IMPRESSION: Single living intrauterine fetus with an ultrasound age of 27 weeks 2 days which is concordant with the clinical age. No sonographic findings to correlated with ptatient's symptomatology. Dr. Coppola has reviewed this report. Abdominal Pain Fem Course/Dx - Course Course Of Treatment: Pt is a 23 y/o female, currently 26 weeks , presenting to [facility] c/o lower abdominal pain, more left than right, for the past few weeks. Pt describes her pain as cramping and constant, and feels her pain is getting worse. Lab work remarkable for WBC of 14.7, CRP of 17.19, urinalysis consistent with a UTI. US shows single living intrauterine fetus with an ultrasound age of 27 weeks 2 days which is concordant with the clinical age. No sonographic findings to correlated with ptatient's symptomatology. In the ED course the pt was given Macrodantin. Pt will be discharged home with follow up from her PCP. She was given a prescription for Macrobid. - Diagnoses Provider Diagnoses: UTI (urinary tract infection) Discharge - Sign-Out/Discharge Documenting (check all that apply): Patient Departure - Discharge home Patient Received Moderate/Deep Sedation with Procedure: No - Discharge Plan Condition: Good Disposition: HOME Prescriptions: Nitrofurantoin Monohyd/M-Cryst [Macrobid 100 mg Capsule] 100 mg PO BID #20 cap Patient Education Materials: Urinary Tract Infection in (ED) Referrals: [facility] [Outside] - Billing Disposition and Condition Condition: GOOD Disposition: Home - Attestation Statements Document Initiated by Scribe: Yes Documenting Scribe: Shilpa Mcknight Provider For Whom Jerry is Documenting (Include Credential): Flavio Coppola MD Scribe Attestation: Shilpa Peterson, scribed for Flavio Coppola MD on 11/07/18 at 0620. Scribe Documentation Reviewed: Yes Provider Attestation: The documentation as recorded by the Shilpa eugene accurately reflects the service I personally performed and the decisions made by me, Flavio Coppola MD Status of Scribe Document: Viewed
[2018-11-06 19:34] LABS: ABS Basophils 0.1 10^3/ul (0-0.2); ABS Eosinophils 0.1 10^3/ul (0-0.6); ABS Lymphocytes 2.1 10^3/ul (1.0-4.8); ABS Monocytes 1.1 10^3/ul (0-0.8); ABS Neutrophils 11.3 10^3/ul (1.5-7.7); Eosinophil % 0.8 %; Hematocrit 31 % (35-47); Lymphocyte % 14.2 %; Mean Corpuscular HGB Conc 35 g/dL (31-36); Mean Corpuscular Hemoglobin 31 pg (27-31); Mean Corpuscular Volume 88 fL (80-97); Mean Platelet Volume 7.9 fL (7.4-10.4); Platelet Count 230 10^3/uL (150-450); Red Blood Count 3.54 10^6 /uL (3.70-4.87); Red Cell Distribution Width 14 % (10-15); White Blood Count 14.7 10^3/uL (3.5-10.8)
[2018-11-06 20:07] LABS: Urine Appearance Cloudy; Urine Bacteria 1+ (Absent); Urine Bilirubin Negative (Negative); Urine Blood Negative (Negative); Urine Color Yellow; Urine Glucose Negative (Negative); Urine Ketones Negative (Negative); Urine Nitrite Negative (Negative); Urine Protein 2+(100 mg/dL) (Negative); Urine Red Blood Cell 1+(3-5/hpf) (Absent); Urine Specific Gravity 1.008 (1.010-1.030); Urine Squamous Epithelial Cell Present (Absent); Urine Urobilinogen Negative (Negative); Urine White Blood Cell 3+(>20/hpf) (Absent)
[2018-11-06 20:11] LABS: Albumin 3.3 g/dL (3.2-5.2); Albumin/Globulin Ratio 1.1 (1-3); BUN/Creatinine Ratio 11.4 (8-20); C Reactive Protein 17.19 mg/L (<8.01); Calcium 8.7 mg/dL (8.6-10.3); EGFR African American 212.6 (>60); EGFR Non-African American 175.7 (>60); Potassium 3.7 mmol/L (3.5-5.0); Total Bilirubin 0.3 mg/dL (0.2-1.0); Total Protein 6.3 g/dL (6.4-8.9)
[2018-11-06] MEDS ORDERED: Nitrofurantoin Macrocrystals* 100 MG CAP PO ONE (21:50)
[2018-11-06 22:05] VITALS: BP 128/78
== END 2018-11-06 22:04 | disposition home or self-care (01) ==
LOC: ED 16:36
DX: O23.42 Unspecified infection of urinary tract in pregnancy, second trimester (principal); Z3A.26 26 weeks gestation of pregnancy; Z88.1 Allergy status to other antibiotic agents; Z88.5 Allergy status to narcotic agent; Z88.0 Allergy status to penicillin
CPT/HCPCS: 36415; 76815; 80053; 81003; 81015; 83690; 85025; 86140; 87086; 99282; A9270-GY

== ENCOUNTER 2019-01-16 18:58 | Emergency (ER) | payer OTHER ==
--- NOTE | 2019-01-16 19:21 | ED ---
- HPI Summary HPI Summary: This patient is a 23 year old female presenting to [facility] with a chief complaint of n/v with since one week ago. She is 36 weeks and is unable to keep down any food. She also reports increased abdominal cramping. Medications reviewed. Allergies noted. She is A0. She denies and diarrhea , constipation, vaginal bleeding. She states she had pre-eclampsia around 20 weeks of . - History of Current Complaint Chief Complaint: EDNauseaVomitDilisa Stated Complaint: I THINK I NEED FLUIDS PER PT Time Seen by Provider: 01/16/19 19:15 Hx Obtained From: Patient Onset/Duration: Started Days Ago Pain Intensity: 6 Character: Cramping - Assessment Hx Now: No - Allergies/Home Medications Allergies/Adverse Reactions: Allergies Allergy/AdvReac Type Severity Reaction Status Date / Time amoxicillin Allergy Hives Verified 01/16/19 19:03 cyclobenzaprine Allergy Hives Verified 01/16/19 19:03 [From Flexeril] morphine Allergy Rash Verified 01/16/19 19:03 Penicillins Allergy Hives Verified 01/16/19 19:03 Home Medications: Home Medications Ferrous Sulfate TAB* 325 mg PO DAILY 01/16/19 [History Confirmed 01/16/19] PMH/Surg Hx/FS Hx/Imm Hx Endocrine/Hematology History: Denies: Hx Diabetes, Hx Thyroid Disease Cardiovascular History: Denies: Hx Hypertension Respiratory History: Reports: Hx Asthma Denies: Hx Chronic Obstructive Pulmonary Disease (COPD) GI History: Denies: Hx Ulcer - Surgical History Surgery Procedure, Year, and Place: appe Infectious Disease History: No Infectious Disease History: Denies: Hx Clostridium Difficile, Hx Hepatitis, Hx Human Immunodeficiency Virus (HIV), Hx of Known/Suspected MRSA, Hx Shingles, Hx Tuberculosis, History Other Infectious Disease, Traveled Outside the [place] in Last 30 Days - Family History Known Family History: Positive: Hypertension - Social History Alcohol Use: None Hx Substance Use: No Substance Use Type: Reports: None Hx Tobacco Use: No Smoking Status (MU): Never Smoked Tobacco Review of Systems Positive: Abdominal Pain, Vomiting, Nausea, Other - Neg: Constipation. Negative : Diarrhea Positive: other - Negative: Vaginal bleeding All Other Systems Reviewed And Are Negative: Yes Physical Exam - Summary Physical Exam Summary: Constitutional: Well-developed, Well-nourished, Alert. (-) Distressed Skin: Warm, Dry HENT: Normocephalic; Atraumatic Eyes: Conjunctiva normal Neck: Musculoskeletal ROM normal neck. (-) JVD, (-) Stridor, (-) Tracheal deviation Cardio: Rhythm regular, rate tachycardic, hypertensive. Heart sounds normal; Intact distal pulses; The pedal pulses are 2+ and symmetric. Radial pulses are 2 + and symmetric. (-) Murmur Pulmonary/Chest wall: Effort normal. (-) Respiratory distress, (-) Wheezes, (-) Rales Abd: Soft, (-) tenderness, Gravid Uterus, (-) Guarding, (-) Rebound. Musculoskeletal: (-) Edema Lymph: (-) Cervical adenopathy Neuro: Alert, Oriented x3 Psych: Mood and affect Normal - Physical Exam Triage Information Reviewed: Yes Vital Signs On Initial Exam: Temp Pulse Resp BP Pulse Ox 98.5 F 117 18 128/78 99 01/16/19 19:00 01/16/19 19:00 01/16/19 19:00 01/16/19 19:00 01/16/19 19:00 Vital Signs Reviewed: Yes Diagnostics - Vital Signs Vital Signs Temp Pulse Resp BP Pulse Ox 01/16/19 19:00 98.5 F 117 18 128/78 99 - Laboratory Result Diagrams: 01/16/19 19:43 01/16/19 19:43 Lab Statement: Any lab studies that have been ordered have been reviewed, and results considered in the medical decision making process. Re-Evaluation - Re-Evaluation First Eval Re-Evaluation Time: 19:31 Comment: HR [address] Gardner, OB. She stated that she is stable here and as long as her blood pressure remains stable she can follow up with her OB at [place] following treatment here with IV fluids and PO. Second Eval Re-Evaluation Time: 21:06 Comment: Patient states she believes she's having contractions. She said its better today than yesterday. OB will perform and read a nonstress test on this patient. Third Eval Re-Evaluation Time: 21:59 Change: Improved Comment: One contraction showed on the NST. The patient states she feels better. Course/Dx - Course Course Of Treatment: Patient is here with vomiting and abdominal cramping. Upon arrival, patient was borderline hypertensive but had no headache or seizure. Patient had a benign abdominal exam. Patient had a heart rate in the 140s. Blood was performed which was grossly unremarkable. Patient did have a symptom metabolic dysuria. SEARCH SPECIALIST was consulted and does not believe patient is unlabored in the fracture contractions were worse yesterday and better today. Patient had not stress test here and only have 1 contraction during the 30 minutes. Patient was given IV fluids and Reglan. Patient was able tolerate by mouth. Patient discharged with Reglan and red. Patient was encouraged to call her SEARCH SPECIALIST as soon as possible to set up a follow-up appointment. - Diagnoses Provider Diagnoses: Vomiting, Asymptomatic bacteriuria, Intrauterine , Abdominal cramping - Provider Notifications Discussed Care Of Patient With: Dipti Gardner - OB Time Discussed With Above Provider: 19:37 Discharge ED - Sign-Out/Discharge Documenting (check all that apply): Patient Departure - Discharge Patient Received Moderate/Deep Sedation with Procedure: No - Discharge Plan Condition: Stable Disposition: HOME Prescriptions: Metoclopramide TAB* [Reglan TAB*] 5 mg PO Q8H #12 tab Nitrofurantoin Monohyd/M-Cryst [Macrobid 100 mg Capsule] 100 mg PO BID 5 Days # 10 cap Patient Education Materials: Nausea and Vomiting in (ED) Referrals: No Primary Care Phys,NOPCP [Primary Care Provider] - Additional Instructions: Come back if you have vaginal bleeding, vaginal fluid, contractions, headache, or worsening abdominal pain. Follow up with your OBGYN in [place] tomorrow morning. - Billing Disposition and Condition Condition: STABLE Disposition: Home - Attestation Statements Document Initiated by Jerry: Yes Documenting Scribe: Tin Bender Provider For Whom Jerry is Documenting (Include Credential): Demetrio Richard MD Scribe Attestation: Tin Peterson, scribed for Demetrio Richard MD on 01/17/19 at 1037. Scribe Documentation Reviewed: Yes Provider Attestation: The documentation as recorded by the Tin eugene accurately reflects the service I personally performed and the decisions made by me, Demetrio Richard MD Status of Scribe Document: Viewed
[2019-01-16] MEDS ORDERED: NS 0.9% 1000 ML** 1,000 ML IV ONE (19:34)
[2019-01-16 19:59] LABS: Hematocrit 30 % (35-47); Hemoglobin 10.1 g/dL (12.0-16.0); Mean Corpuscular HGB Conc 34 g/dL (31-36); Mean Corpuscular Hemoglobin 30 pg (27-31); Mean Corpuscular Volume 87 fL (80-97); Mean Platelet Volume 7.6 fL (7.4-10.4); Platelet Count 200 10^3/uL (150-450); Red Blood Count 3.44 10^6 /uL (3.70-4.87); Red Cell Distribution Width 14 % (10-15); White Blood Count 12.4 10^3/uL (3.5-10.8)
[2019-01-16 20:06] LABS: Fibrinogen 450.3 mg/dL (110.8-404.3); INR 1.08 (0.82-1.09)
[2019-01-16 20:08] LABS: Urine Appearance Cloudy; Urine Bacteria 1+ (Absent); Urine Bilirubin Negative (Negative); Urine Blood Negative (Negative); Urine Color Yellow; Urine Glucose Negative (Negative); Urine Ketones Negative (Negative); Urine Nitrite Negative (Negative); Urine Protein Negative (Negative); Urine Red Blood Cell Trace(0-2/hpf) (Absent); Urine Specific Gravity 1.016 (1.010-1.030); Urine Squamous Epithelial Cell Present (Absent); Urine Urobilinogen Negative (Negative); Urine White Blood Cell 1+(6-10/hpf) (Absent)
[2019-01-16 20:29] LABS: Albumin 3.4 g/dL (3.2-5.2); Albumin/Globulin Ratio 1.2 (1-3); BUN/Creatinine Ratio 14.9 (8-20); Calcium 8.5 mg/dL (8.6-10.3); EGFR Non-African American 162.8 (>60); Globulin 2.9 g/dL (2-4); Potassium 3.6 mmol/L (3.5-5.0); Total Bilirubin 0.3 mg/dL (0.2-1.0); Total Protein 6.3 g/dL (6.4-8.9)
[2019-01-16 20:37] LABS: ABS Eosinophils 0.2 10^3/ul (0-0.6); ABS Lymphocytes 2.1 10^3/ul (1.0-4.8); ABS Monocytes 1.2 10^3/ul (0-0.8); Eosinophil % 1.5 %; Lymphocyte % 16.6 %; Nucleated Red Blood Cells % 0.1
[2019-01-16] MEDS ORDERED: Metoclopramide IV* 5 MG/ML 2 ML VIAL IV ONE (20:50)
[2019-01-16 22:07] VITALS: BP 103/53
== END 2019-01-16 22:05 | disposition home or self-care (01) ==
LOC: ED 18:58
DX: O26.893 Other specified pregnancy related conditions, third trimester (principal); R11.10 Vomiting, unspecified; R82.71 Bacteriuria; R10.9 Unspecified abdominal pain; J45.909 Unspecified asthma, uncomplicated; Z3A.36 36 weeks gestation of pregnancy; Z79.899 Other long term (current) drug therapy; Z88.1 Allergy status to other antibiotic agents; Z88.5 Allergy status to narcotic agent; Z88.0 Allergy status to penicillin; Z88.8 Allergy status to other drugs, medicaments and biological substances
CPT/HCPCS: 36415; 80053; 81003; 81015; 85025; 85384; 85610; 87086; 96361; 96374; 99283; J2765

== ENCOUNTER 2019-03-07 11:33 | Emergency (ER) | payer OTHER ==
--- OUTSIDE RECORDS SUMMARY | 2019-03-07 11:39 | XMS REPORT | Summary of Care ---
:1995 Author Organization [facility] Address [address] [place] [address] Care Team Providers Name Role Phone Wilton Townsend MD Primary Care Provider Reason for Referral MRI/CAT/PET Scan (Routine) Status Reason Specialty Diagnoses / Procedures Referred By Contact Referred To Contact Closed Diagnoses care, subsequent , third trimester Flavio Burroughs MD Procedures US PREG FOLLOW UP PER FETUS [address] [place] [address] Reason for Visit MRI/CAT/PET Scan (Routine) Status Reason Specialty Diagnoses / Procedures Referred By Contact Referred To Contact Closed Diagnoses care, subsequent , third trimester Flavio Burroughs MD Procedures US PREG FOLLOW UP PER FET[facility] [address] [place] [address] Encounter Details Date Type Department Care Team Description 01/19/2019 Hospital Encounter [facility] [address] [place] [address] Allergies Active Allergy Reactions Severity Noted Date Comments [place] Hives 04/19/2014 Morphine Other, Rash 12/05/2011 Made pt very tired, red line up arm Penicillin G Hives 12/05/2011 documented as of this encounter (statuses as of 01/21/2019) Medications Medication Sig Dispensed Refills Start Date End Date Status Take 1 Tab by 90 Tab 3 07/21/2018 Active Ipwqaben-Iex-Zm-FA mouth DAILY. ( FORTE) Oral Tab Ferrous Sulfate (IRON) Take 1 Tab by 60 Tab 5 12/17/2018 Active 325 (65 Fe) MG Oral Tab mouth DAILY. BABY ASPIRIN PO Take by mouth. 0 Active documented as of this encounter (statuses as of 01/21/2019) Active Problems Problem Noted Date Proteinuria affecting in third trimester 12/05/2018 Supervision of other normal , antepartum 09/03/2018 History of section 07/04/2018 Overview: Desires repeat section, operative report of previous section reviewed, patient had lower uterine transverse incision Repeat scheduled 39w0d, 02/06 c provider infection control practitioner Iron deficiency anemia 12/27/2017 Overview: 12/17/18: Start iron tab BID and check H/h in 4 weeks. SS Estimated Date of Delivery Comments Yes 02/06/2019 documented as of this encounter (statuses as of 01/21/2019) Resolved Problems Problem Noted Date Resolved Date Currently 07/04/2018 08/01/2018 Overview: Based on today's CRL Estimated Date of Confinement of 02/13/19 established Intrauterine 06/13/2018 08/01/2018 Abnormal ultrasound of uterus 12/27/2017 01/31/2018 Pyelonephritis 10/09/2017 12/27/2017 Previous delivery, antepartum condition or 05/14/2014 01/31/2018 complication ADDITIONAL PHYSICIAN 05/10/2014 12/27/2017 Overview: Please call Dr. Ash at [phone] or pager #[phone] when patient is admitted. Thank you. 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 , Estimated Date of Delivery: 05/24/14 by ___. GC/CT via ___ was ___ on ___. DEMETRIUS?___ Genetic Screening? ___ Lab Results Lab Results Value Date/Time GGTT 97 03/04/2014 1227 GBS taken on ___ was ___. Signed consent went to L&D on ____. Special preferences for her : . Lab Results Lab Results Value Date/Time ABORH O POS 10/14/2013 1623 Lab Results Lab Results Value Date/Time HCT 31.4 03/04/2014 1227 HCT 40.5 03/22/2013 1759 and Lab Results Lab Results Value Date/Time HGB 10.7 03/04/2014 1227 HGB 13.5 03/22/2013 1759 Lab Results Lab Results Value Date/Time HBSA 0.09 10/14/2013 1633 Lab Results Lab Results Value Date/Time RPR Nonreactive 10/14/2013 1633 No results found for this basename: RUBELLA HIV ___ on ___ documented as of this encounter (statuses as of 01/21/2019) Social History Tobacco Use Types Packs/Day Years Used Date Never Smoker Smokeless Tobacco: Never Used Alcohol Use Drinks/Week oz/Week Comments No 1-2 Standard drinks or equivalent 1.0 - 2.0 Estimated Date of Delivery Comments Yes 02/06/2019 Sex Assigned at Date Recorded Not on file Job Start Date Occupation Industry Not on file Not on file Not on file Travel History Travel Start Travel End No recent travel history available. 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 [address] [place] [address] Name Type Priority Associated Diagnoses Date/Time US PREG FOLLOW UP PER Imaging Routine care, 01/19/2019 8:07 PM EDT FETUS subsequent , third trimester Name Type Priority Associated Diagnoses Order Schedule US PREG FOLLOW UP Imaging Routine care, 1 Occurrences starting PER FETUS subsequent , 01/19/2019 until third trimester 01/19/2019 Health Maintenance Due Date Last Done Comments HPV IMMUNIZATION SERIES (1 - 2009 Female 3-dose series) DEPRESSION SCREENING 12/27/2018 12/27/2017, 12/27/2017 INFLUENZA VACCINE (#1) 2019 CHLAMYDIA SCREENING 06/11/2019 06/11/2018, 01/21/2014, 10/14/2013 PAP SMEAR 12/25/2020 12/25/2017 HIV SCREENING Completed 08/01/2018, 10/14/2013 MENINGOCOCCAL VACCINE IMM Aged Out No longer eligible based on patient's age to complete this topic PNEUMOCOCCAL 0-64 YRS Aged Out No longer eligible based on patient's age to complete this topic documented as of this encounter Goals Goal Patient Goal Associated Recent Patient-Stated? Author Type Problems Progress Blood Pressure Blood Pressure 110/66 No Kristian, < 140/90 (01/19/2019 MD Wilton 3:04 PM EDT) Note: This is an individualized treatment (blood pressure) goal for Sarah Menard: Displayed above (on the left) is your goal for blood pressure control. Your most recent blood pressure is also shown above, on the right. You should try to achieve blood pressures that are lower than your goal listed above (on the left). Take all prescribed medications as directed Self-management Wilton Strickland MD Note: This is an individualized self-management goal for Sarah Menard: Please take all prescribed medications as directed. 1. Do not skip doses. If you cannot afford your medications, talk with your doctor. 2. Use a pill reminder system such as a pill box if needed. Your pharmacist can help you with this. 3. Contact your Pharmacy 5 days before your medication runs out. If you cannot take your medications for any reasons, talk with your doctor. 4. Please bring all of your medication bottles and inhalers (or a list of all your medications/inhalers) with you to every visit. Potential barriers to meeting all of your care plan goals will continue to be addressed on an ongoing basis. documented as of this encounter Results Not on filedocumented in this encounter Visit Diagnoses Diagnosis care, subsequent , third trimester documented in this encounter (Home) [place], [place] [phone] (Work) documented as of this encounter Advance Directives Code Status Date Activated Date Inactivated Comments Full Code 06/13/2018 10:15 PM 06/14/2018 1:04 PM Does the patient have decision making capacity? Yes Order was discussed with: Patient I discussed all options and patient/surrogate requested and agreed to: Full Code
--- OUTSIDE RECORDS SUMMARY | 2019-03-07 11:39 | XMS REPORT | Summary of Care ---
:1995 Author Organization [facility] Address 1 [facility] [place] [address] Care Team Providers Name Role Phone TownsendWilton bauman Primary Care Provider Reason for Visit Reason Comments Scheduled Auth/Cert Status Reason Specialty Diagnoses / Procedures Referred By Contact Referred To Contact Encounter Details Date Type Department Care Team Description 02/10/2019 - Hospital Encounter [facility] LDRP Luz Campuzano MD Inpatient 02/12/2019 [address] [place] [address] [place] [id number] [place] [address] Allergies Active Allergy Reactions Severity Noted Date Comments [place] Hives 04/19/2014 Morphine Other, Rash 12/05/2011 Made pt very tired, red line up arm Penicillin G Hives 12/05/2011 documented as of this encounter (statuses as of 02/13/2019) Medications Medication Sig Dispensed Refills Start Date End Date Status Take 1 Tab by 90 Tab 3 07/21/2018 Active [id number] mouth DAILY. ( FORTE) Oral Tab Ferrous Sulfate Take 1 Tab by 60 Tab 5 12/17/2018 Active (IRON) 325 (65 Fe) mouth DAILY. MG Oral Tab OXYcodone Take 1 Tab by 12 Tab 0 02/12/2019 02/15/2019 Active (OXY-IR,OXY-FAST) mouth EVERY 5 MG Oral Tab SIX HOURS NEEDED (pain) for up to 3 days. Max Daily Amount: 20 mg. BABY ASPIRIN PO Take by 0 02/12/2019 Discontinued mouth. documented as of this encounter (statuses as of 02/13/2019) Active Problems Problem Noted Date S/P repeat low transverse 02/11/2019 Proteinuria affecting in third trimester 12/05/2018 Supervision of other normal , antepartum 09/03/2018 History of section 07/04/2018 Overview: Desires repeat section, operative report of previous section reviewed, patient had lower uterine transverse incision Repeat scheduled 39w0d, 02/06 c provider customer solutions coordinator Iron deficiency anemia 12/27/2017 Overview: -Continue Iron tablets Comments Yes documented as of this encounter (statuses as of 02/13/2019) Resolved Problems Problem Noted Date Resolved Date Currently 07/04/2018 08/01/2018 Overview: Based on today's CRL Estimated Date of Confinement of 02/13/19 established Intrauterine 06/13/2018 08/01/2018 Abnormal ultrasound of uterus 12/27/2017 01/31/2018 Pyelonephritis 10/09/2017 12/27/2017 Previous delivery, antepartum condition or 05/14/2014 01/31/2018 complication ADDITIONAL PHYSICIAN 05/10/2014 12/27/2017 Overview: Please call Dr. Ash at [phone] or pager #[phone] when patient is admitted. Thank you. Preeclampsia 05/10/2014 12/27/2017 Supervision of normal first 10/14/2013 12/27/2017 Overview: Corrosion Control Specialist patient, 18-y.o. , Estimated Date of Delivery: [...] as of this encounter (statuses as of 02/13/2019) Social History Tobacco Use Types Packs/Day Years Used Date Never Smoker 0 Smokeless Tobacco: Never Used Alcohol Use Drinks/Week oz/Week Comments No 1-2 Standard drinks or equivalent 1.0 - 2.0 Comments Yes Sex Assigned at Date Recorded Not on file Job Start Date Occupation Industry Not on file Not on file Not on file Travel History Travel Start Travel End No recent travel history available. documented as of this encounter Last Filed Vital Signs Vital Sign Reading Time Taken Comments Blood Pressure 121/61 02/12/2019 11:00 AM EDT Pulse 79 02/12/2019 11:00 AM EDT Temperature 36.6 02/12/2019 11:00 AM EDT C (97.8 F) Respiratory Rate 16 02/12/2019 11:00 AM EDT Oxygen Saturation 97% 02/10/2019 6:45 PM EDT Inhaled Oxygen Concentration - - Weight 70.8 kg (156 lb) 02/10/2019 6:30 AM EDT Height 154.9 cm (5' 1") 02/10/2019 6:30 AM EDT Body Mass Index 29.48 02/10/2019 6:30 AM EDT documented in this encounter Discharge Summaries Kiki Reese DO - 02/12/2019 10:05 AM EDT [facility] [place]. [address] [employer] Discharge Summary Patient ID: Sarah Menard [id number] 23-y.o. 1995 Admission date: 02/10/2019 Discharge date: 02/12/2019 Admitting Physician: Luz Campuzano MD Discharging Physician: Luz Campuzano MD Indication for Admission: S/P repeat low transverse Principal Diagnosis: S/P repeat low transverse Other medical problems managed in the hospital: Principal Problem: S/P repeat low transverse Active Problems: Iron deficiency anemia Discharged Condition: Stable Hospital Course Sarah Menard is a 23-y.o. G3 now P2 presenting at 39+3 weeks. Patient delivered via Repeat C/S on 02/10 at 0900. Delivery was done under Spinal anesthesia with Low transverse incision. C/S completed without complication. Over the course of the next 2 days pt was provided pain control and vitals/ bleeding was monitored .No concerns found. On the day of discharge, she reported feeling well, with no concerns ; she denied chest pain, shortness of breath, abdominal pain, or problems with voiding or moving bowels. She appeared alert, pleasantly-responsive, in no distress. Vitals were reviewed as follows: BP 122/56 Pulse 93 Temp 98 F ( 36.7 C) (Temporal) Resp 18 Ht 5' 1" (1.549 m) Wt 156 lb (70.8 kg) LMP (LMP Unknown) SpO2 97% ? Yes BMI 29.48 kg/m2. Her heart rate and rhythm were regular, lungs were clear to auscultation, abdomen was soft, non-tender, non-distended, uterus is firm and below the umbilicus, lower extremities were with out edema, and had palpable, symmetrical dorsalis pedis pulses. With a plan in place for outpatient follow-up, she was desirous of being discharged, and was observed to be in stable condition. Consults: None Treatments: IV hydration, analgesia, antibiotics, Minor catheter, wound care Procedures & Operations: Complications: None Medications: Current Discharge Medication List START taking these medications OXYcodone 5 MG Tabs Commonly known as: OXY-IR,OXY-FAST Dose: 5 mg Quantity: 12 Tab Refills: 0 Take 1 Tab by mouth EVERY SIX HOURS NEEDED (pain) for up to 3 days. Max Daily Amount: 20 mg. CONTINUE these medications which have NOT CHANGED Iron 325 (65 Fe) MG Tabs Dose: 1 Tab Quantity: 60 Tab Refills: 5 Take 1 Tab by mouth DAILY. FORTE Tabs Dose: 1 Tab Quantity: 90 Tab Refills: 3 Take 1 Tab by mouth DAILY. Stop taking these previous medications BABY ASPIRIN PO Where to Get Your Medications These medications were sent to [facility]/pharmacy #[id number] [place] [address] AT [place] [id number] OXYcodone 5 MG Tabs Discharge Injections: None Needed Oxygen or Positive Pressure Devices: None Patient Instructions & Follow-Up: Follow up with Marguerite VERAS in 6 weeks for PHV. Activity: Avoid heavy lifting or strenuous exercise. No sex for 6 weeks. Wound Care: Keep wound clean and dry, Observe for redness, swelling or drainage Diet: Balanced diet and encourage fluids I have reviewed this patient's record on the [facility] web site; I have no concerns at this time. The care of this patient was supervised by Dr. Lei Provider Signature: Kiki Reese DO Family Medicine PGY-2 02/12/2019 10: 05 documented in this encounter Discharge Instructions Nabila Herring RN,C - 02/12/2019Post Discharge and Physical Care Instructions Breast Care (Nursing Moms): ? FEED BABY ON DEMAND-at least every 2-3 hours: nurse at least 8 times every 24 hours. ? Wake your baby if it has been MORE than 4 hours since last feedexcept at night ? Your milk will come in 3-6 days ? You may run a low grade fever when your milk comes in ( less than 100.4F) ? Air Dry nipples after each feeding ? Use Extra Floyd[place] Kiel Oil or Lanolin Cream on sore nipples ? Express breast milk and leave on nipples after feeding to help heal nipples ? NO SOAP on nipples ? DRINK plenty of water- EAT regular meals and snacksREST ? Call Your Provider if: *Nipples cracked or bleeding *Hard painful area in breast *Flu like symptoms *Temp 101F or higher *You are having any problems with nursing (Some problems are EASY to fix) Breast Care (Non-Nursing Moms): ? Wear tight bra 23 hours a day for the first week or so and do not stimulate breast ? Put Cabbage leaves inside bra when your milk comes in- replace with fresh cabbage leaves every 2-3hours (The Sulfur in amino acid methionine acts as an antibiotic and anti-irritant, drawing extra blood flow to the area. This dilates the capillaries and acts as a counter irritant, thus relieving engorgement and inflammation) Uterus: ? Your Uterus should stay hard and firm and below your belly button ? Afterbirth pains occur in the first 48 hours and when nursing your baby ( these help to keep your uterus firm) ? You may take 2 Advil (Ibuprofen) or 2 Tylenol tablets every 4-6 hours for cramps Bleeding (Lochia): ? Lochia will be bright red for the first few days, then pinkish red for several days ? It may take 2-6 weeks for bleeding/Lochia to completely stop ? You may pass small clots (grape/plum size) in the first few days this is normal ? Normal lochia order is like menstrual blood a bad order is not normal- CALL! ? Heavy, bright red bleeding may return if you do too much housework, lifting, or walking -REST! Perineum: ? Stiches will absorb or dissolve by themselves ? Continue to use your peribottle for 2 weeks if you had any stitches ? Change peripad often after each bathroom use ? NO TAMPONS for 6 weeks ? Wipe from front to back to prevent bladder infection ? If Pain in your bottom worsens, or you have pain or burning with urination- CALL! Bowels: ? It may take 2-3 days after giving for you to have a bowel movement ? To keep stool soft, drink fluids and juices, eat lots of fruits and vegetables and high fiber foods Activity: ? REST frequently- NAP when your baby naps ? Do Not lift anything heavier than your baby (about 10 lbs) ? No heavy duty housework (No vacuuming or mopping) for 2 weeks ? No long car rides- short trips are OK ? Do not drive for about 1 week ? Shower Daily for 2 weeks; then tub bath or shower daily (Ok to use clean tub for soaking to heal perineum) Diet: ? EAT foods high in: -Protein (meats/eggs/fish/beans/nuts) -Vitamins and Minerals (fruits and vegetables) -Whole grains (brown rice/real oatmeal/whole wheat breads/whole wheat pasta/ whole grain cereals) -Drink lots of water -Avoid high sugar and high caffeine fluids (soda, coffee and teas) EmotionsBaby Blues: ? Mood swings in the first few weeks are normal with a new baby ? If you feel blue, have a good cry, then rest ? Poor diet, fatigue, stress, to much company or activity can lead to severe mood swings EAT WELL! REST! LIMIT ACTIVITIES! [place] (Sex): ? NO SEX until bleeding stops ? Wait until YOU feel ready to have sex: No one should EVER pressure you to have sex ? If you DO NOT want another baby in 9 months, use CONDOMS each time you have sex, unless you are already using RELIABLE CONTROL. You CAN get before your first period! ? After having a baby, some women may need to use a lubricant for comfort Problems: Call your Corrosion Control Specialist or Physician IMMEDIATELY if you have any of the following: ? Chills and/or Fever greater than 100.4 F ? Severe abdominal Pain ? Bright Red BLEEDING, heavier than your normal monthly period ? Your bleeding /lochia has a foul or stinky odor ? Pain or burning when you urinate (pee) ? Pain in your bottom that gets worse ? Lumps, swelling or red streaks in your breasts, especially if you also have a fever ? Cracked or bleeding nipples ? You have thoughts of hurting yourself or your baby To reach your provider, call their office at the following numbers or call [phone] to be put through to the provider customer solutions coordinator. *Midwives: [phone] *Obstetricians: [phone] Section WHAT YOU SHOULD KNOW: A delivery, or , is abdominal surgery to deliver your baby. There are many reasonsyou may need a . A may be scheduled before labor if you had a with your last baby. It may bescheduled if your baby is not positioned normally, or you are with more than 1 baby. Your caregiver may perform an emergency during labor to prevent life-threatening complications for you or your baby. A may be done if your cervix does not dilate after several hours of active labor. Other reasons for a include maternal infections and problems with the placenta. AFTER YOU LEAVE: Medicines: Prescription pain medicine may be given. Ask how to take this medicine safely. Acetaminophen decreases pain and fever. It is available without a doctor' s order. Ask how muchto take and how often to take it. Follow directions. Acetaminophen can cause liver damage if not taken correctly. NSAIDs help decrease swelling and pain or fever. This medicine is available with or without a doctor's order. NSAIDs can cause stomach bleeding or kidney problems in certain people. If you take blood thinner medicine, always ask your site inspector if NSAIDs are safe for you. Always read the medicine label and follow directions. Take your medicine as directed. Contact your site inspector (OB) if you think your medicine is not helping or if you have side effects. Tell him if you are allergic to any medicine. Keep a list of the medicines, vitamins, and herbs you take. Include the amounts, and when and why you take them. Bring the list or the pill bottles to follow-up visits. Carry your medicine list with you in case of an emergency. Follow up with your OB as directed: You may need to return to have your stitches or cyndi removed. Write down your questions so you remember to ask them during your visits. Wound care: Carefully wash your wound with soap and water every day. Keep your wound clean and dry.Wear loose, comfortable clothes that do not rub against your wound. Ask your OB about bathing and showering. Drink plenty of liquids: You can lower your risk for a blood clot if you drink plenty of liquids. Ask how much liquid to drink each day and which liquids are best for you. Limit activity until you have fully recovered from surgery: Ask when it is safe for you to drive, walk up stairs, lift heavy objects, and have sex. Ask when it is okay to exercise, and what types of exercise to do. Start slowly and do more as you get stronger. Contact your OB if: You have heavy vaginal bleeding that fills 1 or more sanitary pads in 1 hour. You have a fever. Your incision is swollen, red, or draining pus. You have questions or concerns about yourself or your baby. Seek care immediately or call 911 if: Blood soaks through your bandage. Your stitches come apart. You feel lightheaded, short of breath, and have chest pain. You cough up blood. Your arm or leg feels warm, tender, and painful. It may look swollen and red. 2014 [place]. Information is for End User's use only and may not be sold, redistributed or otherwise used for commercial purposes. All illustrations and images included in CareNotes are the copyrighted property of [employer] or [employer]. The above information is an braided band assembler only. It is not intended as medical advice for individual conditions or treatments. Talk to your doctor, nurse or pharmacist before following any medical regimen to see if it is safe and effective for you. documented in this encounter Progress Notes Tin Bingham, - 02/11/2019 8:21 AM EDT [facility] [place] [address] [employer] Progress Note Date of Service: 02/11/2019 Patient: Sarah Menard : 1995 B #: [id number] Attending: LUZ CAMPUZANO MD ,MD SUBJECTIVE Patient is a 23-y.o. delivered via Repeat at 39 + 4 weeks gestation. Pain is well controlled on current therapy. Lochia medium. Patient is breast feeding with concerns, continuing to work on right sided latch. No difficulty with left-sided latch. Denies concerns with eating, voiding or having bowel movements. No other issues or concerns this morning. OBJECTIVE BP 110/54 Pulse 79 Temp 97.6 F (36.4 C) (Temporal) Resp 16 Ht 5' 1" (1.549 m) Wt 156 lb(70.8 kg) LMP 04/26/2018 (LMP Unknown) SpO2 96% ? Yes BMI 29.48 kg/m2 General: Awake, Alert, Oriented x3 in no acute distress. Cardiovascular: Regular Rate and Rhythm with no Murmur, Rub, or Gallop. Respiratory: Clear to Ascultation bilaterally. Abdomen: Soft, non-distended. Uterus is firm and below the level of the umbilicus. Incision: Bandaging intact with dried serous fluid. Extremities: within normal limits Lab Results Component Value Date WBC 14.13 (H) 02/11/2019 HGB 10.1 (L) 02/11/2019 HCT 29.6 (L) 02/11/2019 PLAT 181 (L) 02/11/2019 A/P Principal Problem: S/P repeat low transverse Active Problems: Iron deficiency anemia Overview: 12/17/18: Start iron tab BID and check H/h in 4 weeks. SS Patient is a 23-y.o. day 1 for Repeat . - Routine post care. - Routine incision care. - Feedings ad esther. Tin Bingham DO Family Medicine, PGY-1 02/11/2019 08:25 documented in this encounter Plan of Treatment Date Type Specialty Care Team Description 03/17/2019 catalogue clerk Luz Campuzano MD [address] [place] [address] [phone] Health Maintenance Due Date Last Done Comments [...] Type Problems Progress Blood Pressure Blood Pressure 121/61 No Kristian, < 140/90 (02/12/2019 MD [place] 11:00 AM EDT) Note: This is an individualized treatment [...] ongoing basis. documented as of this encounter Procedures Procedure Name Priority Date/Time Associated Comments Diagnosis CBC NO DIFFERENTIAL Routine 02/11/2019 8:08 Results for this AM EDT procedure are in the results section. SIGN PERMIT 02/10/2019 12:00 PM EDT DELIVERY, Planned Trip to 02/10/2019 8:00 OR AM EDT URINE PROTEIN / STAT 02/10/2019 7:31 Results for this CREATININE RATIO AM EDT procedure are in the results section. TYPE AND SCREEN Routine 02/10/2019 6:48 Results for this AM EDT procedure are in the results section. URIC ACID STAT 02/10/2019 6:48 Results for this AM EDT procedure are in the results section. COMPREHENSIVE STAT 02/10/2019 6:48 Results for this METABOLIC PANEL AM EDT procedure are in the results section. CBC WITH DIFFERENTIAL Routine 02/10/2019 6:25 Results for this AM EDT procedure are in the results section. documented in this encounter Results CBC NO DIFFERENTIAL (02/11/2019 8:08 AM EDT) WBC Count 14.13 (H)Comment: 3.98 - 10.04 [facility] Methodology was K/uL [facility] changed 05/15/2018. Please note updated reference range and units. RBC Count 3.40 (L) 3.93 - 5.22 [facility] M/UL [facility] Hemoglobin 10.1 (L) 11.2 - 15.7 [facility] g/dL [facility] Hematocrit 29.6 (L) 34.1 - 44.9 % [facility] MCV 87.1 79.4 - 94.8 [facility] FL [facility] MCH 29.7 25.6 - 32.2 [facility] PG [facility] MCHC 34.1 32.2 - 35.5 [facility] g/dL [facility] Platelet Count 181 (L) 182 - 369 [facility] K/uL [facility] MPV 9.9 9.4 - 12.3 FL [facility] RDW 14.0 11.7 - 14.4 % [facility] Specimen Blood Performing Organization Address [facility] Phone Number [facility] [address] [place] [address] [phone] URINE PROTEIN / CREATININE RATIO (02/10/2019 7:31 AM EDT) Urine Total Protein 80 (H) 0 - 12 MG/DL [facility] Urine Creatinine 34.9 20.0 - 320.0 MG/DL [facility] URINE TP CREATININE 2 No Established [facility] RATIO Reference Range [facility] mg/dl Specimen Urine - Urine specimen (specimen) Performing Organization Address [facility] Phone Number [facility] [address] [place] [address] [phone] URIC ACID (02/10/2019 6:48 AM EDT) Uric Acid 3.9 2.5 - 6.2 MG/DL [facility] Specimen Blood - Blood specimen (specimen) Performing Organization Address [facility] Phone Number [facility] [address] [place] [address] COMPREHENSIVE METABOLIC PANEL (02/10/2019 6:48 AM EDT) Sodium 136 134 - 145 mmol/L [facility] Potassium 3.6 3.5 - 5.1 mmol/L [facility] Chloride 105 98 - 107 mmol/L [facility] CO2 24 22 - 30 mmol/L [facility] Calcium 9.5 8.3 - 10.1 mg/dl [facility] Albumin 3.1 (L) 3.5 - 5.0 g/dl [facility] BUN 7 7 - 17 mg/dl [facility] Creatinine 0.5 (L) 0.7 - 1.2 mg/dl [facility] Glucose 70 70 - 99 mg/dl [facility] Total Protein 6.1 (L) 6.3 - 8.2 g/dl [facility] Total Bilirubin 0.3 0.0 - 1.1 MG/DL [facility] AST 19 15 - 46 U/L [facility] ALT 14 9 - 52 U/L [facility] Alkaline 100 40 - 150 U/L [facility] Phosphatase [facility] eGFR >60 See Interpretation [facility] Comment: Below ml/min/1.73ml GROUP Estimated GFR Interpretation: Sq LABORATORY Above 60ml/min/1.73m2 = Normal Renal Function 30-59 ml/min/1.73m2 = Stage 3 Chronic Kidney Disease 15-29 ml/min/1.73m2 = Stage 4 Chronic Kidney Disease Less than 15 ml/min/1.73m2 = Stage 5 Chronic Kidney Disease The GFR value is calculated using the Modification of Diet in Renal Disease ( MDRD) Study Equation which can be found at: https://www.kidney.org/content/fwvd-ogxib-othqjuev BUN/Creatinine 14 6 - 22 RATIO [facility] Anion Gap 7 3 - 11 mmol/L [facility] A/G Ratio 1.0 0.8 - 2.0 ratio [facility] Specimen Blood - Blood specimen (specimen) Performing Organization Address City/[facility]/Zipcode Phone Number [facility] [address] [place] [address] TYPE AND SCREEN (02/10/2019 6:48 AM EDT) ABO/RH Type O POS [facility] Antibody Screen Interp NEG [facility] Specimen Blood - Blood specimen (specimen) Performing Organization Address [facility] Phone Number [facility] [place] [address] CBC WITH DIFFERENTIAL (02/10/2019 6:25 AM EDT) WBC Count 12.64 (H) 3.98 - 10.04 [facility] K/uL LABORATORY RBC Count 3.63 (L) 3.93 - 5.22 M/UL [facility] Hemoglobin 10.6 (L) 11.2 - 15.7 g/dL [facility] Hematocrit 31.2 (L) 34.1 - 44.9 % [facility] MCV 86.0 79.4 - 94.8 FL [facility] MCH 29.2 25.6 - 32.2 PG [facility] MCHC 34.0 32.2 - 35.5 g/dL [facility] Platelet Count 194 182 - 369 K/uL [facility] MPV 9.9 9.4 - 12.3 FL [facility] RDW 13.8 11.7 - 14.4 % [facility] Neutrophil % 62.9 34.0 - 71.1 % [facility] Lymphocyte % 20.6 19.3 - 51.7 % [facility] Monocyte % 10.6 4.7 - 12.5 % [facility] Eosinophil % 1.6 0.7 - 5.8 % [facility] Basophil % 0.6 0.1 - 1.2 % [facility] nRBC % 0.0 0.0 - 0.2 % [facility] Neutrophil # 7.95 (H) 1.56 - 6.13 K/UL [facility] Lymphocyte # 2.61 1.18 - 3.74 K/UL [facility] Monocyte # 1.34 (H) 0.24 - 0.86 K/UL [facility] Eosinophil # 0.20 0.04 - 0.36 K/UL [facility] Basophil # 0.07 0.01 - 0.08 K/UL [facility] Immature Gran % 3.7 (H) 0.0 - 0.4 % [facility] Immature Gran # 0.47 (H) 0.00 - 0.03 K/uL [facility] NRBC # 0.00 0.00 - 0.12 K/uL [facility] Specimen Blood - Blood specimen (specimen) Performing Organization Address City/State/Zipcode Phone Number [facility] [address] [place] [address] [phone] documented in this encounter Visit Diagnoses Diagnosis S/P repeat low transverse - Primary delivery, without mention of indication, unspecified as to episode of care Iron deficiency anemia Iron deficiency anemia, unspecified documented in this encounter Administered Medications Medication Order MAR Action Action Date Dose Rate Site acetaminophen (TYLENOL) tablet Given 02/12/2019 2:05 PM EDT 1,000 mg 1,000 mg 1,000 mg, Oral, Q6 HRS, First dose on Sat02/10/19 at 1120, Until Discontinued Given 02/12/2019 6:12 AM EDT 1,000 mg Given 02/11/2019 10:25 PM EDT 1,000 mg ibuprofen (MOTRIN) tablet 600 mg Given 02/12/2019 2:05 PM EDT 600 mg 600 mg, Oral, Q6 HRS, First dose on Sat02/11/19 at 0330, Until Discontinued Given 02/12/2019 6:11 AM EDT 600 mg Given 02/11/2019 10:25 PM EDT 600 mg ketorolac (TORADOL) injection 30 mg Given 02/10/2019 9:21 PM EDT 30 mg 30 mg, Intravenous Push, Q6 HRS, 2 doses, First dose on Sat02/10/19 at 1530, Last dose on Sat02/10/19 at 2130 Given 02/10/2019 3:43 PM EDT 30 mg lactated ringers IV 500 mL New Bag 02/10/2019 6:50 AM EDT 500 mL 500 mL, Intravenous, BOLUS PRN, Starting Sat02/10/19 at 0601, Until Sat02/11/19 at 0600, If heart tracing is Category 2 or 3 or uterine tachysystole is present lanolin (Tender Care Lanolin) topical Given 02/11/2019 3:36 PM EDT Other ointment Topical, Q2 HRS PRN, Starting Sat02/10/19 at 1003, Until Grisel 02/12/19 at 1839, dry skin, Apply to breast to treat/prevent soreness nalbuphine (NUBAIN) injection 5 mg Given 02/10/2019 9:21 PM EDT 5 mg 5 mg, Intravenous Push, Q6 HRS PRN, Starting Sat02/10/19 at 0947, Until Sat02/11/19 at 0946, Pruritis/Itching - 1st line Given 02/10/2019 3:43 PM EDT 5 mg OXYcodone (OXY-IR,OXY-FAST) immediate release Given 02/11/2019 8:10 PM EDT 5 mg tablet 5 mg 5 mg, Oral, Q6 HRS PRN, Starting Sat02/11/19 at 0836, Until Grisel 10/3/19 at 1839, Severe Pain (pain scale 7-10)PO 2nd line - if immediate effect not required & can tolerate PO & still has severe pain 2 hrs after admin of 1st line agent or did not tolerate 1st line agent oxytocin in normal saline New Bag 02/10/2019 10:30 125 prateek-units/min 125 mL/hr (PITOCIN) 30 units/500 mL IV AM EDT drip - Post Delivery Intravenous, at 125 mL/hr, CONTINUOUS, Starting 02/10/19 at 1110, Until Tu02/10/19 at 1429, Oxytocin in 500mL Lactated RIngers at Rate__ per hour for remainder of 1 bag, documented in this encounter (Work) [place] [id number] documented as of this encounter Advance Directives Code Status Date Activated Date Inactivated Comments Full Code 06/13/2018 10:15 PM 06/14/2018 1:04 PM Does the patient have decision making capacity? Yes Order was discussed with: Patient I discussed all options and patient/surrogate requested and agreed to: Full Code
[2019-03-07 12:34] VITALS: BP 124/72
--- NOTE | 2019-03-07 12:57 | UC ---
Skin Complaint HPI - HPI Summary HPI Summary: Patient is 23-year-old female presenting with possible infection of incision site 3 days. Patient gave on 02/10/2019. States it began 3 days ago as redness that has progressed. Notes tenderness of the area today. Notes nausea. Denies any drainage. Denies vomiting. Denies fever and chills. Patient has not reached out to her EDUCATION ASSOCIATE yet. - History of Current Complaint Chief Complaint: UCSkin Stated Complaint: POS. INFECTION FROM C SECTION Hx Obtained From: Patient Hx Last Menstrual Period: May 2018 Onset/Duration: Gradual Onset, Lasting Days Timing: Constant Onset Severity: Mild Current Severity: Severe Pain Intensity: 8 Pain Scale Used: 0-10 Numeric - Allergy/Home Medications Allergies/Adverse Reactions: Allergies Allergy/AdvReac Type Severity Reaction Status Date / Time amoxicillin Allergy Hives Verified 03/07/19 12:29 cyclobenzaprine Allergy Hives Verified 03/07/19 12:29 [From Flexeril] morphine Allergy Rash Verified 03/07/19 12:29 Penicillins Allergy Hives Verified 03/07/19 12:29 PMH/Surg Hx/FS Hx/Imm Hx Previously Healthy: Yes - Surgical History Surgical History: Yes Surgery Procedure, Year, and Place: appendectomy. - Family History Known Family History: Positive: Hypertension - Social History Alcohol Use: None Substance Use Type: None Smoking Status (MU): Never Smoked Tobacco - Immunization History Most Recent Influenza Vaccination: fall 2012 Vaccination Up to Date: Yes Review of Systems All Other Systems Reviewed And Are Negative: Yes Constitutional: Positive: Negative. Negative: Fever, Chills Skin: Positive: Rash Respiratory: Positive: Negative Cardiovascular: Positive: Negative Gastrointestinal: Positive: Nausea. Negative: Abdominal Pain, Vomiting, Diarrhea Musculoskeletal: Positive: Negative Neurological: Positive: Negative Physical Exam Triage Information Reviewed: Yes Appearance: Well-Appearing, No Pain Distress, Well-Nourished Vital Signs: Initial Vital Signs Temp 98.7 F 03/07/19 12:30 Pulse 93 03/07/19 12:30 Resp 16 03/07/19 12:30 BP 124/72 03/07/19 12:30 Pulse Ox 100 03/07/19 12:30 Vital Signs Reviewed: Yes Eyes: Positive: Conjunctiva Clear ENT: Positive: Hearing grossly normal Neck: Positive: Supple Respiratory Exam: Normal Respiratory: Positive: Lungs clear, Normal breath sounds, No respiratory distress Cardiovascular Exam: Normal Cardiovascular: Positive: RRR. Negative: Tachycardia Neurological: Positive: Alert Psychological: Positive: Age Appropriate Behavior Skin Exam: Other - Erythema noted over left side of incision extending above and below. 1 mm fluctuance noted incision. No drainage. No bleeding. Course/Dx - Course Course Of Treatment: Patient was also examined by Dr. Luna. No I&D required based on PE findings. Patient being treated with Keflex for cellulitis which is safe for breast-feeding. Instructed to follow up with EDUCATION ASSOCIATE as soon as possible on Saturday for recheck. Instructed to go to the ED if redness worsens or she experiences fever, chills, nausea, or vomiting. Patient voiced understanding and agreed with the treatment plan. Dr. Luna also agreed with the treatment plan. - Diagnoses Provider Diagnosis: Cellulitis Discharge ED - Sign-Out/Discharge Documenting (check all that apply): Patient Departure All imaging exams completed and their final reports reviewed: No Studies - Discharge Plan Condition: Stable Disposition: HOME Prescriptions: Cephalexin CAP* [Keflex CAP*] 500 mg PO TID #21 cap Patient Education Materials: Cellulitis (ED) Referrals: [facility] [Outside] - If Needed Additional Instructions: As discussed, take Keflex as prescribed for treatment of your cellulitis. Apply warm compresses to the area to help alleviate symptoms. The redness from the infection has been outlined today. Follow up with your OBGYN as soon as possible on Saturday for a recheck of the infection. Go to ED if you notice significant increased redness past the outline, fever, chills, nausea and vomiting. - Billing Disposition and Condition Condition: STABLE Disposition: Home - Attestation Statements Provider Attestation: I was available for consult. This patient was seen by the KELI. The patient was not presented to, seen by, or examined by me. -Jose Alejandro
== END 2019-03-07 13:35 | disposition home or self-care (01) ==
LOC: UCEAST 11:33
DX: O86.01 Infection of obstetric surgical wound, superficial incisional site (principal); L03.311 Cellulitis of abdominal wall; Z88.0 Allergy status to penicillin; Z88.5 Allergy status to narcotic agent; Z88.8 Allergy status to other drugs, medicaments and biological substances
CPT/HCPCS: 99212; G0463

== ENCOUNTER 2019-04-13 07:00 | Emergency (ER) | payer OTHER ==
[2019-04-13] MEDS ORDERED: Dexamethasone IV* 4 MG/ML 1 ML (4 MG) ONE (07:09)
[2019-04-13] MEDS ORDERED: NS 0.9% 1000 ML** 1,000 ML IV ONE ×2 (07:10→09:18)
[2019-04-13] MEDS ORDERED: diPHENhydraMINE IV* 50 MG/ML 1 ml VIAL (BENADRYL) IV ONE (07:10)
[2019-04-13] MEDS ORDERED: Famotidine IV* 10 MG/ML 2 ML (20 mg) IV ONE (07:10)
[2019-04-13] MEDS ORDERED: Dexamethasone IV* 4 MG/ML 1 ML (4 MG) IV SLOW PU ONE (07:10)
--- NOTE | 2019-04-13 07:10 | ED ---
Shortness of Breath - HPI Summary HPI Summary: The patient is a 23 y/o F arriving by ambulance to [facility] with a chief complaint of shortness onset immediately prior to arrival. She reports difficulty breathing with swelling of the tongue as well as numbness in the tongue, throat , and hands. She is lethargic and generally weak in the ED. EMS notes that she had a rash on the chest around 0630 this morning which resolved after approximately five minutes. She denies any fever or cough. She has a history of asthma and was administered Albuterol in the ambulance to relief of the wheezing she was experiencing before. She states that she has previously had a similar episode where she had an allergic reaction and was administered Epinephrine. She denies any use of drugs, new medications, medications she is knowingly allergic to, or new perfumes or lotions this morning. No recent flights. Post- 2 months. PMHx: asthma, gestational hypertension, , appendectomy. Nonsmoker, no EtOH, no substance use. Medications reviewed. Allergies noted. - History of Current Complaint Hx Obtained From: Patient, EMS Onset/Duration: Sudden Onset, Lasting Minutes, Still Present Dyspnea At: Rest Aggravating Factors: Nothing Alleviating Factors: Bronchodilators - Albuterol helped relieve wheezing Associated Signs & Symptoms: Wheezing - resolved - Allergy/Home Medications Allergies/Adverse Reactions: Allergies Allergy/AdvReac Type Severity Reaction Status Date / Time amoxicillin Allergy Hives Verified 03/07/19 12:29 cyclobenzaprine Allergy Hives Verified 03/07/19 12:29 [From Flexeril] morphine Allergy Rash Verified 03/07/19 12:29 Penicillins Allergy Hives Verified 03/07/19 12:29 Home Medications: Home Medications NK [No Home Medications Reported] 04/13/19 [History Confirmed 04/13/19] PMH/Surg Hx/FS Hx/Imm Hx Endocrine/Hematology History: Denies: Hx Diabetes, Hx Thyroid Disease Cardiovascular History: Reports: Hx Hypertension - gestational Denies: Hx Hypercholesterolemia Respiratory History: Reports: Hx Asthma Denies: Hx Chronic Obstructive Pulmonary Disease (COPD) GI History: Denies: Hx Ulcer - Surgical History Surgical History: Yes Surgery Procedure, Year, and Place: appendectomy. Infectious Disease History: Denies: Hx Clostridium Difficile, Hx Hepatitis, Hx Human Immunodeficiency Virus (HIV), Hx of Known/Suspected MRSA, Hx Shingles, Hx Tuberculosis, History Other Infectious Disease - Family History Known Family History: Positive: Hypertension - Social History Alcohol Use: None Hx Substance Use: No Substance Use Type: Reports: None Hx Tobacco Use: No Smoking Status (MU): Never Smoked Tobacco Review of Systems Positive: Other - lethargic. Negative: Fever Positive: Other - tongue and throat numbness, tongue swelling Positive: Shortness Of Breath, Other - wheezing (resolved). Negative: Cough Positive: Rash - upper chest (resolved) Positive: Weakness - generalized, Numbness - in the hands All Other Systems Reviewed And Are Negative: Yes Physical Exam - Summary Physical Exam Summary: VITAL SIGNS: Reviewed. GENERAL: Patient is a well-developed and nourished female who is lying comfortable in the stretcher. Patient is not in any acute respiratory distress. Appears anxious. HEAD AND FACE: No signs of trauma. No ecchymosis, hematomas or skull depressions. No sinus tenderness. EYES: PERRLA, EOMI x 2, No injected conjunctiva, no nystagmus. EARS: Hearing grossly intact. Ear canals and tympanic membranes are within normal limits. MOUTH: Dry oral mucosa. Oropharynx otherwise within normal limits. NECK: Supple, trachea is midline, no adenopathy, no JVD, no carotid bruit, no c- spine tenderness, neck with full ROM. CHEST: Symmetric, no tenderness at palpation. LUNGS: Clear to auscultation bilaterally. No wheezing or crackles. CVS: Tachycardic rate and regular rhythm, S1 and S2 present, no murmurs or gallops appreciated. ABDOMEN: Soft, non-tender. No signs of distention. No rebound, no guarding, and no masses palpated. Bowel sounds are normal. EXTREMITIES: FROM in all major joints, no edema, no cyanosis or clubbing. NEURO: Alert and oriented x 3. No acute neurological deficits. Speech is normal and follows commands. SKIN: Dry and warm. Triage Information Reviewed: Yes Vital Signs Reviewed: Yes Procedures - Sedation Patient Received Moderate/Deep Sedation with Procedure: No Diagnostics - Laboratory Result Diagrams: 04/13/19 07:34 04/13/19 11:46 Lab Statement: Any lab studies that have been ordered have been reviewed, and results considered in the medical decision making process. - Radiology Chest X-Ray Radiology Interpretation Completed By: Radiologist Summary of Radiographic Findings: Impression: No acute cardiopulmonary process by radiograph. ED physician has reviewed this report. - EKG 0752 Cardiac Rate: NL - 65 BPM EKG Rhythm: Sinus Rhythm EKG Comparison: Other - New T-wave inversions in V2 and V3 compared to previous on 09/06/18. Summary of EKG Findings: EKG at 0752 reveals normal sinus rhythm at 65 BPM. T- wave inversions in V2 and V3. No ST elevations. ED physician has reviewed and interpreted this EKG. Re-Evaluation - Re-Evaluation First Eval Re-Evaluation Time: 12:30 Change: Improved Comment: We discussed all results and plan for discharge. Course/Dx - Course Assessment/Plan: This patient is a 23-year-old female who presents to the emergency room via ambulance with a chief complaint of having shortness of breath, difficulty breathing, and lethargy. Past medical history: Asthma. In the ED course the patient was placed on the equipment monitor phototypesetting. Patient is saturating at 100% on room air In the physical exam, the patient is a lethargic female unable to give a good history. The patient reports that her tongue is swollen; however, it doesnt seem to be swollen. She does not report that her throat is closing, and she doesnt have any swelling of the lips. She does not have a muffled voice. Decadron, Pepcid and Benadryl were given. Blood test results without any significant abnormality except for WBCs of 12.2, potassium of 2.9 for which the patient was given potassium chloride, carbon dioxide of 20 , anion gap of 15, glucose of 113, lactic acid of 3.2, magnesium of 1.8, total bili of 1.5, and CRP of 20.68. Urinalysis is negative for UTI. Amphetamine screen is positive. Chest x-ray impression: No acute cardiopulmonary process. In the ED course the patient was given IV fluids, and at this time the patient is resting comfortably. Repeat CMP and lactic acid within normal limits. At this time the patient is alert and oriented 3. I believe the patient had an anxiety reaction. I discussed all the findings and test results with the patient. Patient was instructed to return to the emergency room immediately if any of the symptoms return worsens. Plan of care was discussed with the patient and understands and agrees. All questions were answered at patient satisfaction. There were no further complaints or concerns. Lung exam before discharge: CTA B/L. Good air exchange. No wheezing or crackles heard. CVS: S1 and S2 present. No murmurs appreciated. Patient is alert and oriented x 3. Patient is hemodynamically stable. Patient will be discharged home with follow up PCP in the next 2-3 days. - Diagnoses Differential Diagnosis/HQI/PQRI: Positive: Airway Obstruction, Asthma, Bronchitis, CHF, Chest Wall Pain, COPD Exacerbation, Pneumonia, Pulmonary Embolism Provider Diagnoses: Dyspnea, Anxiety, Substance abuse Discharge ED - Sign-Out/Discharge Documenting (check all that apply): Patient Departure - Patient will be discharged home. - Discharge Plan Condition: Stable Disposition: HOME Patient Education Materials: Dyspnea (ED) Referrals: [facility] [Outside] - 3 Days Additional Instructions: Follow up with your primary care provider in 2-3 days. Return to the emergency department for any new or worsening symptoms. - Billing Disposition and Condition Condition: STABLE Disposition: Home - Attestation Statements Document Initiated by Stevenibe: Yes Documenting Scribe: Doris Martin Provider For Whom Jerry is Documenting (Include Credential): Dr. Ray Spence MD Scribe Attestation: Doris Peterson scribed for Dr. Ray Spence MD on 04/14/19 at 0719. Scribe Documentation Reviewed: Yes Provider Attestation: The documentation as recorded by the Doris eugene accurately reflects the service I personally performed and the decisions made by me, Dr. Ray Spence MD Status of Scribe Document: Viewed
[2019-04-13 07:45] LABS: ABS Basophils 0.1 10^3/ul (0-0.2); ABS Eosinophils 0.8 10^3/ul (0-0.6); ABS Lymphocytes 2.7 10^3/ul (1.0-4.8); ABS Monocytes 1.3 10^3/ul (0-0.8); ABS Neutrophils 7.7 10^3/ul (1.5-7.7); Eosinophil % 6.1 %; Hematocrit 41 % (35-47); Hemoglobin 14.1 g/dL (12.0-16.0); Lymphocyte % 21.6 %; Mean Corpuscular HGB Conc 35 g/dL (31-36); Mean Corpuscular Hemoglobin 29 pg (27-31); Mean Corpuscular Volume 84 fL (80-97); Mean Platelet Volume 7.9 fL (7.4-10.4); Platelet Count 337 10^3/uL (150-450); Red Blood Count 4.84 10^6 /uL (3.70-4.87); Red Cell Distribution Width 13 % (10-15); White Blood Count 12.6 10^3/uL (3.5-10.8)
[2019-04-13 07:58] LABS: ALT 28 U/L (7-52); AST 22 U/L (13-39); Albumin 4.7 g/dL (3.2-5.2); Albumin/Globulin Ratio 1.5 (1-3); Alkaline Phosphatase 77 U/L (34-104); Anion Gap 15 mmol/L (2-11); BUN/Creatinine Ratio 13.6 (8-20); Blood Urea Nitrogen 11 mg/dL (6-24); C Reactive Protein 20.68 mg/L (<8.01); CO2 Carbon Dioxide 20 mmol/L (22-32); Calcium 10.3 mg/dL (8.6-10.3); Chloride 103 mmol/L (101-111); EGFR African American 105.1 (>60); EGFR Non-African American 86.9 (>60); Globulin 3.2 g/dL (2-4); Glucose 113 mg/dL (70-100); Potassium 2.9 mmol/L (3.5-5.0); Sodium 138 mmol/L (135-145); Total Protein 7.9 g/dL (6.4-8.9)
[2019-04-13 08:02] LABS: Salicylate < 2.50 mg/dL (<30)
[2019-04-13 08:05] LABS: HCG Pregnancy < 0.60 mIU/mL
[2019-04-13 08:34] LABS: Urine Appearance Clear; Urine Bilirubin Negative (Negative); Urine Blood 1+ (Negative); Urine Color Straw; Urine Glucose Negative (Negative); Urine Ketones Trace (Negative); Urine Nitrite Negative (Negative); Urine Protein Negative (Negative); Urine Specific Gravity 1.003 (1.010-1.030); Urine Urobilinogen Negative (Negative)
[2019-04-13 08:43] LABS: Urine Bacteria Absent (Absent); Urine Red Blood Cell Trace(0-2/hpf) (Absent); Urine Squamous Epithelial Cell Present (Absent); Urine White Blood Cell Absent (Absent)
[2019-04-13 08:50] LABS: Urine Benzodiazepine Screen None Detected (None Detect); Urine Opiates Screen None Detected (None Detect)
[2019-04-13] MEDS ORDERED: Potassium Chlor TAB* 20 MEQ TAB.ER PO ONE (08:52)
[2019-04-13 09:14] LABS: Magnesium 1.8 mg/dL (1.9-2.7)
[2019-04-13 12:14] LABS: Albumin 4.3 g/dL (3.2-5.2); Albumin/Globulin Ratio 1.3 (1-3); BUN/Creatinine Ratio 14.9 (8-20); Calcium 9.8 mg/dL (8.6-10.3); EGFR African American 116.7 (>60); EGFR Non-African American 96.4 (>60); Globulin 3.2 g/dL (2-4); Potassium 4.5 mmol/L (3.5-5.0); Total Protein 7.5 g/dL (6.4-8.9)
[2019-04-13 12:39] VITALS: BP 119/77
== END 2019-04-13 12:41 | disposition home or self-care (01) ==
LOC: ED 07:00
DX: R06.00 Dyspnea, unspecified (principal); F41.9 Anxiety disorder, unspecified; F19.10 Other psychoactive substance abuse, uncomplicated; J45.909 Unspecified asthma, uncomplicated; Z90.89 Acquired absence of other organs; Z88.5 Allergy status to narcotic agent; Z88.0 Allergy status to penicillin; Z88.8 Allergy status to other drugs, medicaments and biological substances
CPT/HCPCS: 36415; 71045; 80053; 80307; 80329; 81003; 81015; 82803; 83605; 83735; 83880; 84702; 85025; 85379; 86140; 93005; 96361; 96374; 96375; 99284; A9270-GY; G0480; J1100; J1200